=== PATIENT | female | born 1965 | race Caucasian/White ===

== ENCOUNTER 2016-11-14 15:46 | Outpatient (CLI) | END 2016-11-14 15:47 | disposition home or self-care (01) | LOC: LAB 15:46 | PROVIDERS: ATTEND Nurse Practitioner Family | DX: E03.9 Hypothyroidism, unspecified (principal) | CPT/HCPCS: 36415; 84439; 84443 ==

== ENCOUNTER 2016-11-30 00:52 | Emergency (ER) ==
[2016-11-30 01:02] VITALS: BP 149/88; TEMP 97.2
[2016-11-30] MEDS ORDERED: GI COCKTAIL PO STA (01:07)
[2016-11-30] MEDS ORDERED: SODIUM CHLORIDE 1,000 ML IV STA (01:10)
[2016-11-30] MEDS ORDERED: ZOFRAN 4 MG/2 ML IVP STA (01:10)
[2016-11-30] MEDS ORDERED: ZANTAC IVP STA (01:11)
[2016-11-30] MEDS ORDERED: PROTONIX IV IVP STA (01:11)
[2016-11-30] MEDS ORDERED: MORPHINE 2 MG/ML SYRINGE IVP STA (01:12)
[2016-11-30] MEDS ORDERED: PEPCID IVP STA (01:25)
[2016-11-30 01:35] LABS: BASOPHILS # (AUTO) 0.1 K/uL (0-0.2); BASOPHILS % (AUTO) 0.5 % (0.0-3.0); EOSINOPHILS # (AUTO) 0.1 K/ul (0.0-0.7); EOSINOPHILS % (AUTO) 0.9 % (0.0-7.0); HEMATOCRIT 38.6 % (37.0-47.0); HEMOGLOBIN 12.7 g/dl (12.0-16.0); IMMATURE GRANULOCYTE % (AUTO) 0.8 % (0.0-5.0); LYMPHOCYTES # (AUTO) 1.9 K/uL (0.60-3.4); LYMPHOCYTES % (AUTO) 19.4 (10.0-50.0); MEAN CORPUSCULAR HEMOGLOBIN 27.7 pg (27.0-31.0); MEAN CORPUSCULAR HGB CONC 32.9 (31.8-35.4); MEAN CORPUSCULAR VOLUME 84.1 fl (81.0-99.0); MONOCYTES # (AUTO) 0.5 K/uL (0.4-2.0); MONOCYTES % (AUTO) 5.1 (0-10); NEUTROPHILS # (AUTO) 7.2 K/ul (2.0-6.9); NEUTROPHILS % (AUTO) 73.3; PLATELET COUNT 297 10^3/uL (140-440); RED BLOOD COUNT 4.59 10^6/ul (4.20-5.40); WHITE BLOOD COUNT 9.87 K/ul (4.6-10.2)
[2016-11-30 01:52] LABS: ALANINE AMINOTRANSFERASE 16 U/L (12-78); ALBUMIN/GLOBULIN RATIO 1.05; ALKALINE PHOSPHATASE 61 U/L (42-98); AMYLASE 78 U/L (25-115); ANION GAP 16.5; ASPARTATE AMINO TRANSFERASE 19 U/L (15-37); BILIRUBIN,TOTAL 0.39 mg/dL (0.00-1.20); BLOOD UREA NITROGEN 12 mg/dL (7-18); BUN/CREATININE RATIO 15.78; CALCIUM 9.9 mg/dL (8.2-10.2); CARBON DIOXIDE 24 mmol/L (21-32); CHLORIDE 105 mmol/L (98-107); CREATINE KINASE 76 U/L; CREATININE 0.76 mg/dL (0.60-1.30); GLUCOSE 116 mg/dL (70-110); LIPASE 36 U/L (8-78); POTASSIUM 5.5 mmol/L (3.5-5.10); SODIUM 140 mmol/L (136-145); TOTAL PROTEIN 7.8 g/dL (6.4-8.2)
--- NOTE | 2016-11-30 02:01 | CT ---
EXAM: CT of the chest without contrast. HISTORY: Epigastric pain. History of cardiac surgery. PROCEDURE: Contiguous axial CT images of the chest without contrast with coronal and sagittal refor mats. FINDINGS: The heart is within normal limits in size. The thoracic aorta is within normal limits in diameter. There is a coronary stent. There is a calcified granuloma in the left lower lobe. There is a 0.3 cm nodule in the left lower lobe. No infiltrate or consolidation. There are multiple viktoriya rnotomy wires. Impression: 0.3 cm nodule in the left lower lobe. Recommend follow-up CT in 3 months to assess sta bility.
--- NOTE | 2016-11-30 02:04 | CT ---
EXAM: CT of the abdomen and pelvis without contrast. HISTORY: Epigastric pain. PROCEDURE: Contiguous axial CT images of the abdomen and pelvis without contrast with coronal and s agittal reformats. FINDINGS: The liver is normal in appearance. The gallbladder is within normal limits in size. The re are partially calcified gallstones in the gallbladder. The gallbladder wall is not well visualiz ed by CT. The pancreas, spleen, adrenal glands and kidneys are normal in appearance. The abdominal aorta is within normal limits in diameter. The visualized loops of bowel and appendix are normal i n appearance. No free fluid or free air in the abdomen or pelvis. The bladder is minimally filled with no abnormality identified. The uterus is unremarkable. There are degenerative changes in the spine. Impression: Cholelithiasis as described.
[2016-11-30] MEDS ORDERED: DILAUDID 1 MG/ML SYRINGE ONE (02:13)
[2016-11-30] MEDS ORDERED: DILAUDID 1 MG/ML SYRINGE IVP STA ×2 (02:20→04:32)
[2016-11-30 02:30] LABS: ADD URINE MICROSCOPIC YES; BILIRUBIN,URINE Negative (NEGATIVE); KETONES,URINE Negative (NEGATIVE); LEUKOCYTE ESTERASE ,URINE Trace (NEGATIVE); NITRITE,URINE Negative (NEGATIVE); PH,URINE 5.5 (5-9); PROTEIN,URINE Negative (NEGATIVE); URINE, BLOOD Trace-intact (NEGATIVE)
[2016-11-30 05:58] LABS: CREATINE KINASE 61 U/L
--- NOTE | 2016-11-30 06:30 | ED.PDOC ---
General ED Provider: Dr. BIRDIE BAY-ER Chief Complaint: Nausea/Vomiting Stated Complaint: val got gerd--this is diff than my heart problem--it rodney and hurts--page had this for years Time Seen by Physician: 00:55 Mode of Arrival: Walk-In Information Source: Patient Exam Limitations: No limitations Nursing and Triage Documentation Reviewed and Agree: Yes GI Complaint Exam - Abdominal Pain Complaint/Exam Onset: Gradual Duration: several hours Symptoms Are: Still present Timing: Constant Initial Severity: Mild Current Severity: Moderate Location of Pain: Epigastric Character: Reports: Aching, Burning Aggravating: Reports: None Alleviating: Reports: Spontaneous resolution Associated Signs and Symptoms: Reports: Nausea, Vomiting. Denies: Diaphoresis, Fever, Cough, Chest pain, Dizziness, Back pain, Constipation, Blood in stool, Dysuria, Urinary frequency, Decreased urine output, Decreased appetite, Vaginal bleeding, Vaginal discharge, Diarrhea, Sore throat Related History: Denies: Similar episode AAA Risk Factors: Reports: None Cardiac Risk Factors: Reports: Hypertension, CAD Ectopic Risk Factors: Reports: None Ovarian Torsion Risk Factors: Reports: None Surgical Obstruction Risk Factors: Reports: None Patient Rh Status: Unknown Abdominal Findings: Present: None Differential Diagnoses: Constipation, Pancreatitis Quality Indicator For Non-Traumatic Chest Pain/Syncope: EKG Performed Review of Systems - Review Of Systems Constitutional: Reports: No symptoms Eyes: Reports: No symptoms Ears, Nose, Mouth, Throat: Reports: No symptoms Respiratory: Reports: No symptoms Cardiac: Reports: No symptoms GI: Reports: Abdominal pain : Reports: No symptoms Musculoskeletal: Reports: No symptoms Skin: Reports: No symptoms Neurological: Reports: No symptoms Endocrine: Reports: No symptoms Hematologic/Lymphatic: Reports: No symptoms All Other Systems: Reviewed and Negative Past Medical History - Past Medical History Endocrine: Reports: Dyslipidemia Cardiovascular: Reports: CAD, Hypertension Respiratory: Reports: None Hematological: Reports: None Gastrointestinal: Reports: None Genitourinary: Reports: None Neuro/Psych: Reports: None Musculoskeletal: Reports: None Cancer: Reports: None Last Menstrual Period: 40 - Surgical History General Surgical History: Reports: CABG - Family History Family History: Reports: Unknown - Social History Smoking Status: Former smoker Hx Substance Use: No Alcohol Screening: None Lives: With family - Immunizations Tetanus Shot up to Date: Yes Physical Exam - Physical Exam Appearance: Well-appearing, No pain distress, Well-nourished Pain Distress: Moderate Eyes: EUSEBIO, EOMI, Conjunctiva clear ENT: Ears normal, Nose normal, Oropharynx normal Neck: Supple Respiratory: Airway patent, Breath sounds clear, Breath sounds equal, Respirations nonlabored Cardiovascular: RRR, Pulses normal, No rub, No murmur GI/: Soft, Nontender, No masses, Bowel sounds normal, No Organomegaly Musculoskeletal: Normal strength, ROM intact, No edema, No calf tenderness Skin: Warm, Dry, Normal color Neurological: Sensation intact, Motor intact, Reflexes intact, Cranial nerves intact, Alert, Oriented Psychiatric: Affect appropriate, Mood appropriate Interpretation - Radiology Interpretation Radiology Interpretation By: Radiologist Radiology Results: Positive Exam Interpreted: CT Scan - EKG Interpretation Time of EKG #1: 01:00 Rate: Normal Rhythm: Sinus Ectopy: None [place]: NL ST Segment: Normal Interpretation: nsr Time of EKG #2: 05:15 Rate: Normal Rhythm: Sinus Ectopy: None [place]: NL ST Segment: Normal EKG Interpretation: nsr Re-Evaluation - Re-Evaluation Time of Re-Evaluation: 06:31 Status: Improved Vital Signs Stable: Yes Pain Level: o Appearance: NAD Lungs: Clear Skin: Warm and Dry Neuro: Alert and Oriented X3 CV: RRR Critical Care Note - Critical Care Note Total Time (mins): 0 Course - Course Hematology/Chemistry: 11/30/16 01:15 11/30/16 01:15 Orders, Labs, Meds: Lab Review 11/30/16 11/30/16 11/30/16 01:15 02:21 05:30 WBC 9.87 RBC 4.59 Hgb 12.7 Hct 38.6 MCV 84.1 MCH 27.7 MCHC 32.9 RDW Coeff of Jeff 12.2 Plt Count 297 Immature Gran % (Auto) 0.8 Neut % (Auto) 73.3 Lymph % (Auto) 19.4 Jack % (Auto) 5.1 Eos % (Auto) 0.9 Baso % (Auto) 0.5 Immature Gran # (Auto) 0.1 Neut # 7.2 H Lymph # 1.9 Jack # 0.5 Eos # 0.1 Baso # 0.1 D-Dimer 0.82 Sodium 140 Potassium 5.5 H Chloride 105 Carbon Dioxide 24 Anion Gap 16.5 BUN 12 Creatinine 0.76 Estimated GFR (MDRD) 80.00 BUN/Creatinine Ratio 15.78 Glucose 116 H Calcium 9.9 Total Bilirubin 0.39 AST 19 ALT 16 Alkaline Phosphatase 61 Total Creatine Kinase 76 61 Troponin I < 0.0100 < 0.0100 Total Protein 7.8 Albumin 4.0 Globulin 3.8 Albumin/Globulin Ratio 1.05 Amylase 78 Lipase 36 Urine Color Yellow Urine Clarity Clear Urine pH 5.5 Ur Specific [place] 1.025 Urine Protein Negative Urine Glucose (UA) Negative Urine Ketones Negative Urine Blood Trace-intact Urine Nitrite Negative Urine Bilirubin Negative Urine Urobilinogen 0.2 Ur Leukocyte Esterase Trace Urine Microscopic RBC 2-5 Urine Microscopic WBC 0-2 Ur Squamous Epith Cells 2-5 Orders Category Date Time Status EKG-(ED ONLY) Stat CARDIO 11/30/16 01:07 Completed EKG-(ED ONLY) Timed CARDIO 11/30/16 05:30 Completed IV [ED IV/MEDIPORT/POWERPORT] .ONCE EMERGENCY 11/30/16 01:10 Active AMYLASE Stat LAB 11/30/16 01:15 Completed CBC W/ AUTO DIFF Stat LAB 11/30/16 01:15 Completed CK [CREATINE KINASE] Timed LAB 11/30/16 05:30 Completed COMPREHENSIVE METABOLIC PANEL Stat LAB 11/30/16 01:15 Completed CREATINE KINASE Stat LAB 11/30/16 01:15 Completed D-DIMER Stat LAB 11/30/16 01:15 Completed LIPASE Stat LAB 11/30/16 01:15 Completed TROPONIN I Stat LAB 11/30/16 01:15 Completed TROPONIN I Timed LAB 11/30/16 05:30 Completed URINALYSIS C & S IF INDICATED Stat LAB 11/30/16 02:21 Completed 0.9 % Sodium Chloride [Saline Flush] MEDS 11/30/16 01:10 Ordered 1 syr IVF PRN PRN Famotidine Inj [Pepcid] MEDS 11/30/16 01:25 Discontinued 40 mg IVP ONCE STA Hydromorphone HCl [Dilaudid 1 mg/ml Syringe] MEDS 11/30/16 04:32 Discontinued 0.5 mg IVP ONCE STA Hydromorphone HCl [Dilaudid 1 mg/ml Syringe] MEDS 11/30/16 02:13 Discontinued 1 mg .ROUTE .STK-MED ONE Hydromorphone HCl [Dilaudid 1 mg/ml Syringe] MEDS 11/30/16 02:20 Discontinued 1 mg IVP ONCE STA Mag-Al Plus//Lidocaine [Gi Cocktail] MEDS 11/30/16 01:07 Discontinued 30 ml PO ONCE STA Morphine Sulfate [Morphine 2 mg/ml Syringe] MEDS 11/30/16 01:12 Discontinued 2 mg IVP ONCE STA Ondansetron HCl/Pf [Zofran 4 mg/2 ml] MEDS 11/30/16 01:10 Discontinued 4 mg IVP ONCE STA Pantoprazole Sodium [Protonix IV] MEDS 11/30/16 01:11 Discontinued 40 mg IVP ONCE STA Sodium Chloride 0.9% [Sodium Chloride] 1,000 ml MEDS 11/30/16 01:10 Active IV 100 mls/hr CT ABDOMEN/PELVIS WO CONTRAST Stat RADS 11/30/16 01:[address] CHEST W/O CONTRAST Stat RADS 11/30/16 01:11 Completed Medications Generic Name Dose Route Start Last Admin Trade Name Freq PRN Reason Stop Dose Admin Sodium Chloride 1,000 mls @ 100 mls/hr 11/30/16 01:10 11/30/16 01:31 Sodium Chloride IV 11/30/16 11:09 100 mls/hr .Q10H STA Administration Sodium Chloride 1 syr 11/30/16 01:10 Saline Flush IVF PRN PRN To flush IV Discontinued Medications Generic Name Dose Route Start Last Admin Trade Name Freq PRN Reason Stop Dose Admin Al Hydroxide/Mg Hydroxide 30 ml 11/30/16 01:07 11/30/16 04:19 Gi Cocktail PO 11/30/16 01:08 30 ml ONCE STA Administration Famotidine 40 mg 11/30/16 01:25 11/30/16 02:20 Pepcid IVP 11/30/16 01:26 40 mg ONCE STA Administration Hydromorphone HCl 1 mg 11/30/16 02:20 11/30/16 02:21 Dilaudid 1 Mg/Ml Syringe IVP 11/30/16 02:21 1 mg ONCE STA Administration Hydromorphone HCl 0.5 mg 11/30/16 04:32 11/30/16 04:43 Dilaudid 1 Mg/Ml Syringe IVP 11/30/16 04:33 0.5 mg ONCE STA Administration Morphine Sulfate 2 mg 11/30/16 01:12 11/30/16 01:30 Morphine 2 Mg/Ml Syringe IVP 11/30/16 01:13 2 mg ONCE STA Administration Ondansetron HCl 4 mg 11/30/16 01:10 11/30/16 01:31 Zofran 4 Mg/2 Ml IVP 11/30/16 01:11 4 mg ONCE STA Administration Pantoprazole Sodium 40 mg 11/30/16 01:11 11/30/16 01:30 Protonix Iv IVP 11/30/16 01:12 40 mg ONCE STA Administration Vital Signs: Temp Pulse Resp BP Pulse Ox 11/30/16 00:53 97.2 F L 66 20 149/88 H 97 Departure - Departure Time of Disposition: 06:32 Disposition: HOME SELF-CARE Discharge Problem: Lung nodule < 6cm on CT Cholelithiasis Qualifiers: Cholelithiasis location: gallbladder Cholecystitis presence: without cholecystitis Biliary obstruction: without biliary obstruction Qualifier Code: ( K80.20) Calculus of gallbladder without cholecystitis without obstruction GERD (gastroesophageal reflux disease) Qualifiers: Esophagitis presence: without esophagitis Qualifier Code: (K21.9) Gastro- esophageal reflux disease without esophagitis Instructions: Gallstones (ED) Condition: Good Pt referred to PMD for follow-up: Yes Additional Instructions: protonix 40mg #30--avoid acidy, spicy foods and caffeine--talk to hyour pcp about surgical referral and repeat ct of chest in 3mos Allergies/Adverse Reactions: Allergies acetaminophen [From [place]] Allergy (Severe, Verified 11/30/16 01:02) Problems breathing aspirin Allergy (Severe, Verified 11/30/16 01:02) Hives diphenhydramine HCl [From Benadryl] Allergy (Severe, Verified 11/30/16 01:02) Problems breathing Patient will notify drugstore and buy medical alert necklace hydrocodone bitartrate [From [place]] Allergy (Severe, Verified 11/30/16 01:02) Problems breathing Home Medications: Ambulatory Orders Calcium Carbonate/Vitamin D3 [Calcium 600 + Vit D 200 Tablet] 1 each PO DAILY Cholecalciferol (Vitamin D3) [Vitamin D3] 5,000 unit PO WEEKLY 06/24/16 Clopidogrel Bisulfate [Plavix] 75 mg PO d 06/24/16 Famotidine 20 mg PO BID 08/22/16 Metoprolol Succinate 12.5 mg PO BID 06/24/16 Pravastatin Sodium 40 mg PO d 06/24/16 Disposition Discussed With: Patient
== END 2016-11-30 06:44 | disposition home or self-care (01) ==
LOC: ED 00:52
DX: K21.9 Gastro-esophageal reflux disease without esophagitis (principal); K80.20 Calculus of gallbladder without cholecystitis without obstruction; R91.1 Solitary pulmonary nodule; I10 Essential (primary) hypertension; I25.810 Atherosclerosis of coronary artery bypass graft(s) without angina pectoris; E78.5 Hyperlipidemia, unspecified; Z79.899 Other long term (current) drug therapy
CPT/HCPCS: 36415; 80053; 81001; 82150; 82550; 83690; 84484; 85025; 85379; 93005; 93010; 96374; 96375; 96376; 99283

== ENCOUNTER 2016-12-01 13:13 | Emergency (ER) ==
[2016-12-01 13:16] VITALS: BP 143/83; TEMP 99.2; BMI 26.6
--- NOTE | 2016-12-01 13:24 | ED.PDOC ---
General ED Provider: Dr. BIRDIE BAY-ER Chief Complaint: Non-specific Complaint Stated Complaint: i was hurting and now i feel better Time Seen by Physician: 13:15 Mode of Arrival: Walk-In Information Source: Patient Exam Limitations: No limitations Primary Care Provider: RAMBO DURAND-[facility] Nursing and Triage Documentation Reviewed and Agree: Yes GI Complaint Exam - Abdominal Pain Complaint/Exam Onset: Gradual Duration: 24hrs Symptoms Are: Resolved Initial Severity: Mild Current Severity: None Character: Reports: Dull Aggravating: Reports: None Associated Signs and Symptoms: Denies: Diaphoresis, Fever, Cough, Chest pain, Dizziness, Back pain, Constipation, Blood in stool, Dysuria, Urinary frequency, Decreased urine output, Decreased appetite, Vaginal bleeding, Vaginal discharge , Nausea, Vomiting, Diarrhea, Sore throat, Decreased activity Cardiac Risk Factors: Reports: CAD Ectopic Risk Factors: Reports: None Ovarian Torsion Risk Factors: Reports: None Surgical Obstruction Risk Factors: Reports: None Patient Rh Status: Unknown Abdominal Findings: Present: None Differential Diagnoses: Other Review of Systems - Review Of Systems Constitutional: Reports: No symptoms Eyes: Reports: No symptoms Ears, Nose, Mouth, Throat: Reports: No symptoms Respiratory: Reports: No symptoms Cardiac: Reports: No symptoms GI: Reports: No symptoms : Reports: No symptoms Musculoskeletal: Reports: No symptoms Skin: Reports: No symptoms Neurological: Reports: No symptoms Endocrine: Reports: No symptoms Hematologic/Lymphatic: Reports: No symptoms All Other Systems: Reviewed and Negative Past Medical History - Past Medical History Endocrine: Reports: Dyslipidemia Cardiovascular: Reports: CAD, Hypertension Respiratory: Reports: None Hematological: Reports: None Gastrointestinal: Reports: None Genitourinary: Reports: None Neuro/Psych: Reports: None Musculoskeletal: Reports: None Cancer: Reports: None Last Menstrual Period: none - Surgical History General Surgical History: Reports: CABG - Family History Family History: Reports: Unknown - Social History Smoking Status: Former smoker Hx Substance Use: No Alcohol Screening: None Lives: With family Physical Exam - Physical Exam Appearance: Well-appearing, No pain distress, Well-nourished Eyes: EUSEBIO, EOMI, Conjunctiva clear ENT: Ears normal Neck: Supple Respiratory: Airway patent, Breath sounds clear, Breath sounds equal, Respirations nonlabored Cardiovascular: RRR, Pulses normal, No rub, No murmur GI/: Soft, Nontender, No masses, Bowel sounds normal, No Organomegaly Musculoskeletal: Normal strength, ROM intact, No edema, No calf tenderness Skin: Warm, Dry, Normal color Neurological: Sensation intact, Motor intact, Reflexes intact, Cranial nerves intact, Alert, Oriented Psychiatric: Affect appropriate, Mood appropriate Critical Care Note - Critical Care Note Total Time (mins): 0 Course - Course Vital Signs: Temp Pulse Resp BP Pulse Ox 12/01/16 13:14 99.2 F 67 18 143/83 H 96 Departure - Departure Time of Disposition: 13:24 Disposition: HOME SELF-CARE Discharge Problem: Cholelithiasis Qualifiers: Cholelithiasis location: gallbladder Cholecystitis presence: without cholecystitis Biliary obstruction: without biliary obstruction Qualifier Code: ( K80.20) Calculus of gallbladder without cholecystitis without obstruction Instructions: Gallstones (ED) Condition: Good Pt referred to PMD for follow-up: Yes Additional Instructions: ok for returning to work from the standpoint of gallstones as she is asymptomatic at this point(denies cp, dyspnea or abd pain at this time) Allergies/Adverse Reactions: Allergies acetaminophen [From [place]] Allergy (Severe, Verified 12/01/16 13:16) Problems breathing aspirin Allergy (Severe, Verified 12/01/16 13:16) Hives diphenhydramine HCl [From Benadryl] Allergy (Severe, Verified 12/01/16 13:16) Problems breathing Patient will notify drugstore and buy medical alert necklace hydrocodone bitartrate [From [place]] Allergy (Severe, Verified 12/01/16 13:16) Problems breathing Home Medications: Ambulatory Orders Calcium Carbonate/Vitamin D3 [Calcium 600 + Vit D 200 Tablet] 1 each PO DAILY Cholecalciferol (Vitamin D3) [Vitamin D3] 5,000 unit PO WEEKLY 06/24/16 Clopidogrel Bisulfate [Plavix] 75 mg PO d 06/24/16 Famotidine 20 mg PO BID 06/24/16 Metoprolol Succinate 12.5 mg PO BID 06/24/16 Pravastatin Sodium 40 mg PO d 06/24/16 Disposition Discussed With: Patient
== END 2016-12-01 13:30 | disposition home or self-care (01) ==
LOC: ED 13:13
DX: K80.20 Calculus of gallbladder without cholecystitis without obstruction (principal)
CPT/HCPCS: 99281

== ENCOUNTER 2016-12-04 15:32 | Outpatient (CLI) ==
[2016-12-04 15:55] VITALS: BMI 24.3
== END 2016-12-04 15:33 ==
LOC: AMBL 15:32
PROVIDERS: ATTEND Emergency Medicine
DX: R10.9 Unspecified abdominal pain (principal); K80.80 Other cholelithiasis without obstruction

== ENCOUNTER 2016-12-04 15:43 | Emergency (ER) ==
[2016-12-04 15:55] VITALS: BP 116/65; TEMP 97.4; BMI 24.3
[2016-12-04] MEDS ORDERED: ULTRAM PO STA ×3 (16:03→16:17)
--- NOTE | 2016-12-04 16:05 | ED.PDOC ---
General ED Provider: Dr. WICHO SKINNER JR Chief Complaint: Abdominal Pain Stated Complaint: seen this er on friday and dx with gallstones--awaiting scheduling with surgeon--today pain worsened and became steady-states was getting out of car and became sweaty with abd pain occuring[ End ]1 HOUR 97.4 58 16 98% 116/65 6/10 symptoms resolved on exam. tolerated ultram without difficulty Time Seen by Physician: 16:01 Mode of Arrival: Stretcher Information Source: Patient, EMT Exam Limitations: No limitations Nursing and Triage Documentation Reviewed and Agree: No Review of Systems - Review Of Systems Constitutional: Reports: No symptoms Eyes: Reports: No symptoms Ears, Nose, Mouth, Throat: Reports: No symptoms Respiratory: Reports: No symptoms Cardiac: Reports: No symptoms GI: Reports: Abdominal pain : Reports: No symptoms Musculoskeletal: Reports: No symptoms Skin: Reports: No symptoms Neurological: Reports: No symptoms Endocrine: Reports: No symptoms Hematologic/Lymphatic: Reports: No symptoms All Other Systems: Other Past Medical History - Past Medical History Endocrine: Reports: Hypothyroid, Dyslipidemia Cardiovascular: Reports: CAD, Hypertension, CHF Respiratory: Reports: None Hematological: Reports: Anemia Gastrointestinal: Reports: GERD Genitourinary: Reports: None Neuro/Psych: Reports: None Musculoskeletal: Reports: None Cancer: Reports: None Last Menstrual Period: menopause Other Pertinent Past Medical History: single cardiac bypass 2010 - Surgical History General Surgical History: Reports: Tonsillectomy, Adenoidectomy, CABG - Family History Family History: Reports: Unknown - Social History Smoking Status: Former smoker Hx Substance Use: No Alcohol Screening: None Physical Exam - Physical Exam Appearance: Well-appearing Neck: Supple Respiratory: Airway patent GI/: Soft, Nontender, No masses, Bowel sounds normal Critical Care Note - Critical Care Note Total Time (mins): 0 Course - Course Orders, Labs, Meds: Orders Category Date Time Status Tramadol HCl [Ultram] MEDS 12/04/16 16:17 Discontinued 100 mg PO ONCE STA Medications Discontinued Medications Generic Name Dose Route Start Last Admin Trade Name Freq PRN Reason Stop Dose Admin Tramadol HCl 100 mg 12/04/16 16:17 12/04/16 16:18 Ultram PO 12/04/16 16:18 100 mg ONCE STA Administration Vital Signs: Temp Pulse Resp BP Pulse Ox 12/04/16 15:43 97.4 F L 58 L 16 116/65 98 Departure - Departure Time of Disposition: 17:10 Disposition: HOME SELF-CARE Discharge Problem: Cholecystitis with cholelithiasis Qualifiers: Cholelithiasis location: gallbladder Cholecystitis acuity: acute Biliary obstruction: without biliary obstruction Qualifier Code: (K80.00) Calculus of gallbladder with acute cholecystitis without obstruction Instructions: Cholecystitis (ED), Biliary Colic (ED), Gallstones (ED) Condition: Good Pt referred to PMD for follow-up: Yes Additional Instructions: call PMD inform need urgent surgical consult for "RECURRENT CHOLECYSTITIS" FOLLOW UP PMD OR SURGEON THIS WEEK FOR MEDICATION REFILL NEEDED FOR ULTRAM MAY USE ULTRAM FOR PAIN OK TO WAIT OUT PAIN IF NO FEVER AND NOT VOMITING IF PAIN MORE THAN 20 MINUTES RECOMMEND RETURN AND EVALUATE IF NOT RESOLVED Prescriptions: Tramadol HCl [Ultram] 50 mg PO Q6H PRN #14 tablet PRN Reason: PAIN Allergies/Adverse Reactions: Allergies aspirin Allergy (Severe, Verified 12/04/16 15:51) Hives diphenhydramine HCl [From Benadryl] Allergy (Severe, Verified 12/04/16 15:51) Problems breathing Patient will notify drugstore and buy medical alert necklace hydrocodone bitartrate [From [place]] Allergy (Severe, Verified 12/04/16 15:51) Problems breathing Home Medications: Ambulatory Orders Calcium Carbonate/Vitamin D3 [Calcium 600 + Vit D 200 Tablet] 1 each PO DAILY Cholecalciferol (Vitamin D3) [Vitamin D3] 5,000 unit PO WEEKLY 06/24/16 Clopidogrel Bisulfate [Plavix] 75 mg PO d 06/24/16 Metoprolol Succinate 12.5 mg PO BID 06/24/16 Pravastatin Sodium 40 mg PO d 06/24/16 Pantoprazole Sodium [Protonix] 40 mg PO DAILY 12/02/16 Tramadol HCl [Ultram] 50 mg PO Q6H PRN #14 tablet 12/04/16
== END 2016-12-04 17:19 | disposition home or self-care (01) ==
LOC: ED 15:43
DX: K80.00 Calculus of gallbladder with acute cholecystitis without obstruction (principal)
CPT/HCPCS: 99282

== ENCOUNTER 2016-12-18 12:24 | Outpatient (CLI) ==
[2016-12-18 12:35] LABS: FLU INTERNAL QC INTERNAL QC VALID; RAPID FLU A NEGATIVE (NEGATIVE); RAPID FLU B NEGATIVE (NEGATIVE)
== END 2016-12-18 12:25 | disposition home or self-care (01) ==
LOC: LAB 12:24
PROVIDERS: ATTEND Nurse Practitioner Family
DX: J02.9 Acute pharyngitis, unspecified (principal); R50.9 Fever, unspecified
CPT/HCPCS: 87651; 87804; 87880

== ENCOUNTER 2017-02-13 16:17 | Outpatient (CLI) ==
[2017-02-13 17:02] LABS: ALANINE AMINOTRANSFERASE 11 U/L (12-78); ALBUMIN 3.6 g/dL (3.4-5.0); ALBUMIN/GLOBULIN RATIO 1.03; ALKALINE PHOSPHATASE 58 U/L (42-98); ANION GAP 10.7; ASPARTATE AMINO TRANSFERASE 15 U/L (15-37); BILIRUBIN,TOTAL 0.32 mg/dL (0.00-1.20); BLOOD UREA NITROGEN 9 mg/dL (7-18); BUN/CREATININE RATIO 12.16; CALCIUM 9.4 mg/dL (8.2-10.2); CARBON DIOXIDE 27 mmol/L (21-32); CHLORIDE 104 mmol/L (98-107); CHOL/HDL RATIO 2.5 (4.5-5.5); CHOLESTEROL 147 mg/dL (0-200); CREATININE 0.74 mg/dL (0.60-1.30); GLUCOSE 92 mg/dL (70-110); HDL CHOLESTEROL 58 mg/dL (35-80); POTASSIUM 3.7 mmol/L (3.5-5.10); SODIUM 138 mmol/L (136-145); TOTAL PROTEIN 7.1 g/dL (6.4-8.2); TRIGLYCERIDES 105 mg/dL (30-150); VLDL CHOLESTEROL 21 mg/dL (2-30)
== END 2017-02-13 16:18 | disposition home or self-care (01) ==
LOC: LAB 16:17
PROVIDERS: ATTEND Nurse Practitioner Family
DX: E78.5 Hyperlipidemia, unspecified (principal); E03.9 Hypothyroidism, unspecified
CPT/HCPCS: 36415; 80053; 80061; 84443

== ENCOUNTER 2017-02-24 07:03 | Outpatient (CLI) ==
--- NOTE | 2017-02-24 08:24 | CT ---
EXAM: CT of the chest with contrast History: Pulmonary nodule follow-up Comparison: Chest CT 11/30/2016 Technique: Multiplanar CT images through the thorax were obtained following administration of IV co ntrast Findings: Heart size is normal. Coronary calcifications or stent. Great vessels are unremarkable. No pathologically enlarged thoracic lymph nodes. No consolidation. No pleural fluid and no pneumothorax. No suspicious lung masses or lung nodules. Within the visualized upper abdomen, status post cholecystectomy. No acute osseous abnormalities. Impression: No acute intrathoracic process. No suspicious lung masses or lung nodules.
[2017-02-24 08:25] LABS: ALBUMIN 3.3 g/dL (3.4-5.0); ALBUMIN/GLOBULIN RATIO 1.18; ANION GAP 11.7; BILIRUBIN,TOTAL 0.42 mg/dL (0.00-1.20); BUN/CREATININE RATIO 13.23; CALCIUM 8.7 mg/dL (8.2-10.2); CREATININE 0.68 mg/dL (0.60-1.30); POTASSIUM 3.7 mmol/L (3.5-5.10); TOTAL PROTEIN 6.1 g/dL (6.4-8.2)
== END 2017-02-24 07:04 | disposition home or self-care (01) ==
LOC: RAD 07:03
PROVIDERS: ATTEND Nurse Practitioner Family
DX: E78.5 Hyperlipidemia, unspecified (principal); E03.9 Hypothyroidism, unspecified; R91.1 Solitary pulmonary nodule
CPT/HCPCS: 36415; 80053; 84439; 84443

== ENCOUNTER 2017-06-03 23:34 | Emergency (ER) ==
[2017-06-03 23:39] VITALS: BP 148/87; TEMP 96.9; BMI 25.0
--- NOTE | 2017-06-03 23:48 | ED.PDOC ---
General ED Provider: Dr. BIRDIE BAY-ER Chief Complaint: Extremity Pain/Injury Stated Complaint: i hurt my elbow last night Time Seen by Physician: 23:45 Mode of Arrival: Walk-In Information Source: Patient Exam Limitations: No limitations [facility] Nursing and Triage Documentation Reviewed and Agree: Yes Musculoskeletal Complaint Exam - Elbow Pain Complaint/Exam Mechanism of Injury: Reports: Trauma Onset/Duration: last night Symptoms Are: Still present Onset of Pain: Reports: Immediate Initial Severity: Mild Current Severity: Mild Location: Reports: Discrete Character: Reports: Dull, Aching Alleviating: Reports: None Aggravating: Reports: Movement, Twisting, Pulling Associated Signs and Symptoms: Reports: Swelling, Bruising. Denies: Redness, Fever, Weakness, Numbness, Tingling Elbow Findings: Present: Swelling, Ecchymosis Tenderness: Present: Lateral Condyle Differential Diagnoses: Contusion, Closed Fracture Review of Systems - Review Of Systems Constitutional: Reports: No symptoms Eyes: Reports: No symptoms Ears, Nose, Mouth, Throat: Reports: No symptoms Respiratory: Reports: No symptoms Cardiac: Reports: No symptoms GI: Reports: No symptoms : Reports: No symptoms Musculoskeletal: Reports: Joint swelling Skin: Reports: No symptoms Neurological: Reports: No symptoms Endocrine: Reports: No symptoms Hematologic/Lymphatic: Reports: No symptoms All Other Systems: Reviewed and Negative Past Medical History - Past Medical History Previously Healthy: Yes Endocrine: Reports: Hypothyroid, Dyslipidemia Cardiovascular: Reports: CAD, Hypertension, CHF Respiratory: Reports: None Hematological: Reports: Anemia Gastrointestinal: Reports: GERD Genitourinary: Reports: None Neuro/Psych: Reports: None Musculoskeletal: Reports: None Cancer: Reports: None Last Menstrual Period: 13 years ago Other Pertinent Past Medical History: single cardiac bypass 2010 - Surgical History General Surgical History: Reports: Tonsillectomy, Adenoidectomy, CABG - Family History Family History: Reports: Unknown - Social History Smoking Status: Former smoker Hx Substance Use: No Alcohol Screening: None Lives: With family - Immunizations Tetanus Shot up to Date: Yes Physical Exam - Physical Exam Appearance: Well-appearing, No pain distress, Well-nourished Pain Distress: Mild Eyes: EUSEBIO ENT: Ears normal, Nose normal, Oropharynx normal Neck: Supple Respiratory: Airway patent, Breath sounds clear, Breath sounds equal, Respirations nonlabored Cardiovascular: RRR, Pulses normal, No rub, No murmur GI/: Soft, Nontender, No masses, Bowel sounds normal, No Organomegaly Musculoskeletal: Limited ROM Skin: Warm, Dry, Normal color Neurological: Sensation intact, Motor intact, Reflexes intact, Cranial nerves intact, Alert, Oriented Psychiatric: Affect appropriate, Mood appropriate Interpretation - Radiology Interpretation Radiology Interpretation By: Radiologist Radiology Results: Positive Exam Interpreted: Other Critical Care Note - Critical Care Note Total Time (mins): 0 Course - Course Orders, Labs, Meds: Orders Category Date Time Status ELBOW, RIGHT MIN 3 VIEWS Stat RADS 06/03/17 23:44 Completed Vital Signs: Temp Pulse Resp BP Pulse Ox 06/03/17 23:35 96.9 F L 60 17 148/87 H 97 Departure - Departure Time of Disposition: 23:47 Disposition: HOME SELF-CARE Discharge Problem: Injury of upper extremity Instructions: Elbow Sprain (ED), Avulsion Fracture (ED) Condition: Good Pt referred to PMD for follow-up: Yes Additional Instructions: ice--ultram 50mg q 6hrs prn pain #10--stay in splint/sling--f/u at ortho walk in clinic tomorrow with copy of xrays Allergies/Adverse Reactions: Allergies aspirin Allergy (Severe, Verified 06/03/17 23:39) Hives diphenhydramine HCl [From Benadryl] Allergy (Severe, Verified 06/03/17 23:39) Problems breathing Patient will notify drugstore and buy medical alert necklace hydrocodone bitartrate [From [place]] Allergy (Severe, Verified 06/03/17 23:39) Problems breathing Home Medications: Ambulatory Orders Calcium Carbonate/Vitamin D3 [Calcium 600 + Vit D 200 Tablet] 1 each PO DAILY Cholecalciferol (Vitamin D3) [Vitamin D3] 5,000 unit PO WEEKLY 06/24/16 Clopidogrel Bisulfate [Plavix] 75 mg PO d 06/24/16 Metoprolol Succinate 12.5 mg PO BID 06/24/16 Pravastatin Sodium 40 mg PO d 06/24/16 Tramadol HCl [Ultram] 50 mg PO Q6H PRN #14 tablet 12/04/16 Disposition Discussed With: Patient
--- NOTE | 2017-06-04 00:05 | DI ---
EXAM: Three views of the right elbow. HISTORY: Trauma. FINDINGS: There is a 0.2 cm calcification along the posterior margin of the olecranon suspicious fo r an avulsion fragment. The joint spaces are maintained. There is minimal posterior soft tissue sw elling. Impression: 0.2 cm calcification along the posterior margin of the olecranon suspicious for an avul marlen fragment. Recommend correlation with physical exam. Minimal posterior soft tissue swelling.
== END 2017-06-04 00:20 | disposition home or self-care (01) ==
LOC: ED 23:34
DX: M25.521 Pain in right elbow (principal); S59.901A Unspecified injury of right elbow, initial encounter
CPT/HCPCS: 99282

== ENCOUNTER 2017-07-30 08:04 | Outpatient (CLI) ==
[2017-07-30 08:29] LABS: BASOPHILS % (AUTO) 0.5 % (0.0-3.0); EOSINOPHILS # (AUTO) 0.2 K/ul (0.0-0.7); EOSINOPHILS % (AUTO) 1.9 % (0.0-7.0); HEMATOCRIT 35.2 % (37.0-47.0); HEMOGLOBIN 11.8 g/dl (12.0-16.0); IMMATURE GRANULOCYTE % (AUTO) 0.4 % (0.0-5.0); LYMPHOCYTES # (AUTO) 2.6 K/uL (0.60-3.4); LYMPHOCYTES % (AUTO) 33.6 (10.0-50.0); MEAN CORPUSCULAR HEMOGLOBIN 28.6 pg (27.0-31.0); MEAN CORPUSCULAR HGB CONC 33.5 (31.8-35.4); MEAN CORPUSCULAR VOLUME 85.2 fl (81.0-99.0); MONOCYTES # (AUTO) 0.4 K/uL (0.4-2.0); MONOCYTES % (AUTO) 5.5 (0-10); NEUTROPHILS # (AUTO) 4.6 K/ul (2.0-6.9); NEUTROPHILS % (AUTO) 58.1; PLATELET COUNT 322 10^3/uL (140-440); RED BLOOD COUNT 4.13 10^6/ul (4.20-5.40); WHITE BLOOD COUNT 7.86 K/ul (4.6-10.2)
[2017-07-30 09:04] LABS: ALBUMIN 3.5 g/dL (3.4-5.0); ALBUMIN/GLOBULIN RATIO 1.06; ANION GAP 10.7; BILIRUBIN,TOTAL 0.46 mg/dL (0.00-1.20); BUN/CREATININE RATIO 12.85; CALCIUM 9.3 mg/dL (8.2-10.2); CHOL/HDL RATIO 2.8 (4.5-5.5); CREATININE 0.7 mg/dL (0.60-1.30); POTASSIUM 3.7 mmol/L (3.5-5.10); TOTAL PROTEIN 6.8 g/dL (6.4-8.2)
== END 2017-07-30 08:05 | disposition home or self-care (01) ==
LOC: LAB 08:04
PROVIDERS: ATTEND Nurse Practitioner Family
DX: E03.9 Hypothyroidism, unspecified (principal); E78.5 Hyperlipidemia, unspecified; I25.10 Atherosclerotic heart disease of native coronary artery without angina pectoris
CPT/HCPCS: 36415; 80053; 80061; 84439; 84443; 85025

== ENCOUNTER 2017-08-04 10:45 | Outpatient (CLI) ==
--- NOTE | 2017-08-06 08:27 | MAMMO ---
EXAM: Bilateral digital screening mammogram (2-D and 3-D). Comparison: Bilateral mammogram 06/27/2016 Findings: MLO and CC views of bilateral breasts demonstrate scattered fibroglandular breast parenchy ma. CAD was reviewed by the radiologist. Tomosynthesis performed. Stable benign lymph node within the right breast. Stable benign bilateral breast calcifications. There are no dominant masses, no s uspicious microcalcifications and no architectural distortions Impression: Benign stable mammogram. Recommend followup routine screening mammography in 1 year. BIRADS 2
== END 2017-08-04 10:46 | disposition home or self-care (01) ==
LOC: RAD 10:45
PROVIDERS: ATTEND Nurse Practitioner Family
DX: Z12.31 Encounter for screening mammogram for malignant neoplasm of breast (principal)
CPT/HCPCS: 77067

== ENCOUNTER 2017-10-09 17:31 | Emergency (ER) ==
[2017-10-09 17:39] VITALS: BP 119/77; TEMP 100.4; BMI 26.0
[2017-10-09] MEDS ORDERED: SODIUM CHLORIDE 1,000 ML IV STA (17:54)
[2017-10-09] MEDS ORDERED: ZOFRAN 4 MG/2 ML IVP STA (17:54)
--- NOTE | 2017-10-09 17:54 | ED.PDOC ---
General ED Provider: Dr. WICHO SKINNER JR Chief Complaint: Nausea/Vomiting Stated Complaint: Woke this AM, 0700 diarrhea Vomiting after Watery stools " too many to count." Vomited x 5. H/A, body aches[ End ]100.4 85 20 95% 119/77 Time Seen by Physician: 17:54 Mode of Arrival: Walk-In Information Source: Patient Exam Limitations: No limitations Primary Care Provider: [facility] Nursing and Triage Documentation Reviewed and Agree: No Review of Systems - Review Of Systems Constitutional: Reports: Malaise Eyes: Reports: No symptoms Ears, Nose, Mouth, Throat: Reports: No symptoms Respiratory: Reports: No symptoms Cardiac: Reports: No symptoms GI: Reports: Abdominal pain, Diarrhea, Nausea, Vomiting : Reports: No symptoms Musculoskeletal: Reports: No symptoms Skin: Reports: No symptoms Neurological: Reports: No symptoms Endocrine: Reports: No symptoms Hematologic/Lymphatic: Reports: No symptoms All Other Systems: Other Past Medical History - Past Medical History Previously Healthy: Yes Endocrine: Reports: Hypothyroid, Dyslipidemia Cardiovascular: Reports: CAD, Hypertension, CHF Respiratory: Reports: None Hematological: Reports: Anemia Gastrointestinal: Reports: GERD Genitourinary: Reports: None Neuro/Psych: Reports: None Musculoskeletal: Reports: None Cancer: Reports: None Last Menstrual Period: unknown: post menopausal Other Pertinent Past Medical History: single cardiac bypass 2010 - Surgical History General Surgical History: Reports: Tonsillectomy, Adenoidectomy, CABG (x1 in 2011) - Family History Family History: Reports: Unknown - Social History Smoking Status: Former smoker Hx Substance Use: No Alcohol Screening: None Physical Exam - Physical Exam Appearance: Ill-appearing Ill-appearing: Mild Pain Distress: Mild Eyes: EUSEBIO, EOMI, Conjunctiva clear ENT: Ears normal, Nose normal, Oropharynx normal Neck: Supple Respiratory: Airway patent Cardiovascular: RRR GI/: Soft, Tender (nonfocal), Bowel sounds hyperactive Musculoskeletal: Normal strength, ROM intact, No edema, No calf tenderness Skin: Warm, Dry, Normal color Neurological: Sensation intact, Motor intact, Reflexes intact, Cranial nerves intact, Alert, Oriented Psychiatric: Affect appropriate, Mood appropriate Critical Care Note - Critical Care Note Total Time (mins): 0 Course - Course Orders, Labs, Meds: Orders Category Date Time Status Ondansetron HCl/Pf [Zofran 4 mg/2 ml] MEDS 12/07/17 17:54 Discontinued 4 mg IVP ONCE STA Sodium Chloride 0.9% [Sodium Chloride] 1,000 ml MEDS 10/09/17 17:54 Discontinued IV BOLUS Medications Discontinued Medications Generic Name Dose Route Start Last Admin Trade Name Maria C PRN Reason Stop Dose Admin Sodium Chloride 1,000 mls @ 1,000 mls/hr 10/09/17 17:54 10/09/17 18:20 Sodium Chloride IV 10/09/17 18:53 1,000 mls/hr BOLUS STA Administration Ondansetron HCl 4 mg 10/09/17 17:54 10/09/17 18:21 Zofran 4 Mg/2 Ml IVP 10/09/17 17:55 4 mg ONCE STA Administration Vital Signs: Temp Pulse Resp BP Pulse Ox 10/09/17 17:31 100.4 F H 85 20 119/77 95 Departure - Departure Time of Disposition: 19:03 Disposition: HOME SELF-CARE Discharge Problem: Nausea, Vomiting Instructions: Gastroenteritis (ED) Condition: Fair Pt referred to PMD for follow-up: Yes Additional Instructions: clear liquids for 12 hours after vomiting may use zofran or phenergan for nausea return if fever over 101.0 or if worsening increase liquids to 10 to 12 eight ounce cups per day for three days recheck PMD one week sooner if not resolved Prescriptions: Ondansetron HCl [Zofran Tab] 4 mg PO QID PRN #12 tablet PRN Reason: Nausea / Vomiting Promethazine HCl [Phenergan Tab] 25 mg PO QID PRN #12 tablet PRN Reason: Nausea / Vomiting Allergies/Adverse Reactions: Allergies aspirin Allergy (Severe, Verified 10/09/17 17:39) Hives diphenhydramine HCl [From Benadryl] Allergy (Severe, Verified 10/09/17 17:39) Problems breathing Patient will notify drugstore and buy medical alert necklace hydrocodone bitartrate [From [place]] Allergy (Severe, Verified 10/09/17 17:39) Problems breathing Home Medications: Ambulatory Orders Calcium Carbonate/Vitamin D3 [Calcium 600 + Vit D 200 Tablet] 1 each PO DAILY Cholecalciferol (Vitamin D3) [Vitamin D3] 5,000 unit PO WEEKLY 06/24/16 Clopidogrel Bisulfate [Plavix] 75 mg PO d 06/24/16 Metoprolol Succinate 12.5 mg PO BID 06/24/16 Pravastatin Sodium 40 mg PO d 06/24/16 Ondansetron HCl [Zofran Tab] 4 mg PO QID PRN #12 tablet 10/09/17 Promethazine HCl [Phenergan Tab] 25 mg PO QID PRN #12 tablet 10/09/17
== END 2017-10-09 19:00 | disposition home or self-care (01) ==
LOC: ED 17:31
DX: K52.9 Noninfective gastroenteritis and colitis, unspecified (principal)
CPT/HCPCS: 96360; 96375; 99283

== ENCOUNTER 2018-01-23 08:01 | Outpatient (CLI) | END 2018-01-23 08:02 | disposition home or self-care (01) | LOC: LAB 08:01 | PROVIDERS: ATTEND Nurse Practitioner Family | DX: E78.5 Hyperlipidemia, unspecified (principal); K21.9 Gastro-esophageal reflux disease without esophagitis; E55.9 Vitamin D deficiency, unspecified; M81.0 Age-related osteoporosis without current pathological fracture; I25.10 Atherosclerotic heart disease of native coronary artery without angina pectoris; E03.9 Hypothyroidism, unspecified; Z79.899 Other long term (current) drug therapy | CPT/HCPCS: 36415; 80053; 80061; 81001; 82306; 84439; 84443; 85025 ==

== ENCOUNTER 2018-02-17 09:59 | Emergency (ER) ==
[2018-02-17 10:09] VITALS: BP 125/82; TEMP 97.6; BMI 25.0
--- NOTE | 2018-02-17 10:44 | ED.PDOC ---
General ED Provider: Dr. BIRDIE CONNER Chief Complaint: Knee Pain/Injury Stated Complaint: Lt Knee Pain. Was walking and felt her knee pop afterwhich she developed pain Time Seen by Physician: 10:50 Mode of Arrival: Walk-In Information Source: Patient Exam Limitations: No limitations [facility] and T[facility] Documentation Reviewed and Agree: Yes Reviewed sepsis parameters & appropriate labs ordered?: Yes System Inflammatory Response Syndrome: Not Applicable Sepsis Protocol: For patient's 13 years and over: Temp is 96.8 and below OR 101 and greater Pulse >90 BPM Resp >20/minute Acutely Altered Mental Status Are patient's symptoms suggestive of a new infection, such as: -Pneumonia -Skin, Soft Tissue -Endocarditis -UTI -Bone, Joint Infection -Implantable Device -Acute Abdominal Infection -Wound Infection -Meningitis -Blood Stream Catheter Infection -Unknown System Inflammatory Response Syndrome: Not Applicable Review of Systems - Review Of Systems Constitutional: Reports: No symptoms Eyes: Reports: No symptoms Ears, Nose, Mouth, Throat: Reports: No symptoms Respiratory: Reports: No symptoms Cardiac: Reports: No symptoms GI: Reports: No symptoms : Reports: No symptoms Musculoskeletal: Reports: Joint pain (lt knee) Skin: Reports: No symptoms Neurological: Reports: No symptoms Endocrine: Reports: No symptoms Hematologic/Lymphatic: Reports: No symptoms All Other Systems: Reviewed and Negative Past Medical History - Past Medical History Previously Healthy: Yes Endocrine: Reports: Hypothyroid, Dyslipidemia Cardiovascular: Reports: CAD, Hypertension, CHF Respiratory: Reports: None Hematological: Reports: Anemia Gastrointestinal: Reports: GERD Genitourinary: Reports: None Neuro/Psych: Reports: None Musculoskeletal: Reports: None Cancer: Reports: None Last Menstrual Period: none since 38 y.o. Other Pertinent Past Medical History: single cardiac bypass 2011 - Surgical History General Surgical History: Reports: Tonsillectomy, Adenoidectomy, CABG (x1 in 2011) - Family History Family History: Reports: Unknown - Social History Smoking Status: Former smoker Hx Substance Use: No Alcohol Screening: None Physical Exam - Physical Exam Appearance: Well-appearing, No pain distress, Well-nourished, Obese Ill-appearing: None Pain Distress: Mild Eyes: EUSEBIO, EOMI, Conjunctiva clear ENT: Ears normal, Nose normal, Oropharynx normal Respiratory: Airway patent, Breath sounds clear, Breath sounds equal, Respirations nonlabored Cardiovascular: RRR, Pulses normal, No rub, No murmur GI/: Soft, Nontender, No masses, Bowel sounds normal, No Organomegaly Musculoskeletal: Normal strength, ROM intact, No edema, No calf tenderness, Limited ROM (Lt knee-pain with full extension and flexion. Neg Ant/posterior Drawer sign; positive [place] ; neg effusion ), Limited strength Skin: Warm, Dry, Normal color Neurological: Sensation intact, Motor intact, Reflexes intact, Cranial nerves intact, Alert, Oriented Psychiatric: Affect appropriate, Mood appropriate Interpretation - Radiology Interpretation Radiology Interpretation By: Radiologist Radiology Results: No acute changes Exam Interpreted: Other (lt knee xray) Critical Care Note - Critical Care Note Total Time (mins): 0 Course - Course Orders, Labs, Meds: Orders Category Date Time Status KNEE, LEFT 4 VIEWS Stat RADS 02/17/18 11:37 Completed Vital Signs: Temp Pulse Resp BP Pulse Ox 02/17/18 10:07 97.6 F 65 20 125/82 96 Departure - Departure Time of Disposition: 12:50 Disposition: HOME SELF-CARE Discharge Problem: Strain of left knee Instructions: Knee Immobilizer (ED), Knee Pain (ED) Condition: Good Pt referred to PMD for follow-up: Yes (3-5 days with PCP or Orthopedic Center ) IPMP verified?: No Additional Instructions: Wear Knee Immobilizer for protection Avoid weight bearing ambulation Crutches Off work today and tomorrow Follow up PCP for additional evaluation and possible scheduling for MRI Allergies/Adverse Reactions: Allergies aspirin Allergy (Severe, Verified 02/17/18 10:10) Hives diphenhydramine HCl [From Benadryl] Allergy (Severe, Verified 02/17/18 10:10) Problems breathing Patient will notify drugstore and buy medical alert necklace hydrocodone bitartrate [From [place]] Allergy (Severe, Verified 02/17/18 10:10) Problems breathing Home Medications: Ambulatory Orders Calcium Carbonate/Vitamin D3 [Calcium 600 + Vit D 200 Tablet] 1 each PO DAILY Clopidogrel Bisulfate [Plavix] 75 mg PO d 06/24/16 Pravastatin Sodium 40 mg PO d 06/24/16 Disposition Discussed With: Patient
--- NOTE | 2018-02-17 12:10 | DI ---
EXAM: Four views of the left knee HISTORY: Left knee pain. COMPARISON: None FINDINGS: The left knee demonstrates no acute abnormality or displaced fracture. The medial lateral compartments are normal. The patella is normal in position and appearance with mild superior osteoph yte formation. There is no lytic or blastic lesion. The soft tissues are unremarkable. IMPRESSION: No acute abnormality or displaced fracture of the left knee.
== END 2018-02-17 13:27 | disposition home or self-care (01) ==
LOC: ED 09:59
DX: S86.812A Strain of other muscle(s) and tendon(s) at lower leg level, left leg, initial encounter (principal); X50.1XXA Overexertion from prolonged static or awkward postures, initial encounter
CPT/HCPCS: 99283

== ENCOUNTER 2018-02-25 11:55 | Outpatient (CLI) ==
--- NOTE | 2018-02-25 14:40 | MRI ---
EXAM: MRI left knee without contrast. HISTORY: Left knee pain. Mainly medial. No left knee surgery reported. TECHNIQUE: Using a local extremity coil on a high field strength magnet multiplanar multisequence ma gnet resonance imaging was performed of the left knee without intravenous or intra-articular gadolini um contrast.. FINDINGS: I have reviewed the patient's four view plain film examination left knee 02/17/2018 showin g suprapatellar effusion. Within the medial compartment there is meniscal flap tear displaced along the inferior recess involvi ng the body. Undersurface tearing extends over the posterior horn body junction and through to invol ve the inner margin of the posterior horn itself. Medial compartment chondrosis. Trace subchondral edema over the medial weightbearing rim of the medial tibial plateau. Within the lateral compartment lateral meniscus is intact without discrete surfacing meniscal tear. The lateral compartment cartilage congruent without focal underlying subchondral edema. Within the patellofemoral compartment the patella seated with intact medial and lateral patellar reti naculum. Mild patellar chondrosis/chondromalacia patella. Trochlear groove cartilage congruent with out underlying subchondral edema. Early productive osteophyte formation. Small/moderate left effusion. No large osteochondral loose bodies. Intact anterior and posterior cr uciate ligament fibers showing normal orientation. The extensor mechanism is intact. Edematous appe aring suprapatellar fat with convex border. Patellar tendinosis. Low grade sprain medial collateral ligament. Lateral collateral ligament complex intact as is the posterolateral corner. Small account support analyst ior joint extension/popliteal cyst. Tendinosis with some partial thickness tearing origin medial hea d gastrocnemius. IMPRESSION: Meniscal flap tear displaced along the inferior recess involving the body medial meniscu s. Undersurface tear extends over the posterior horn body junction and through to involve the inner margin of the posterior horn itself. Medial compartment chondrosis. Mild patellar chondrosis/chondromalacia patella. Small/moderate left knee effusion. Small posterior joint extension/popliteal cyst. Intact cruciate ligaments. Low grade sprain medial collateral ligament. Edematous appearing suprapatellar fat with convex border. This can be seen with quadriceps/suprapate llar fat pad impingement syndrome. Correlate clinically. Patellar tendinosis. Tendinosis with some partial thickness tearing origin medial head gastrocnemius..
== END 2018-02-25 11:56 | disposition home or self-care (01) ==
LOC: RAD 11:55
PROVIDERS: ATTEND Nurse Practitioner Family
DX: M25.562 Pain in left knee (principal)

== ENCOUNTER 2018-04-28 10:31 | Outpatient (CLI) | END 2018-04-28 10:32 | disposition home or self-care (01) | LOC: FCC-LAB 10:31 | PROVIDERS: ATTEND Nurse Practitioner Family | DX: K21.9 Gastro-esophageal reflux disease without esophagitis (principal); I10 Essential (primary) hypertension; E03.9 Hypothyroidism, unspecified; E78.5 Hyperlipidemia, unspecified; E55.9 Vitamin D deficiency, unspecified | CPT/HCPCS: 36415; 80053; 80061; 81001; 82306; 84439; 84443; 85025 ==

== ENCOUNTER 2018-04-29 11:53 | Outpatient (CLI) ==
--- NOTE | 2018-04-29 15:34 | US ---
EXAM: Thyroid ultrasound HISTORY: Nontoxic thyroid nodule. COMPARISON: Ultrasound 07/15/2016 TECHNIQUE: Sonographic evaluation of the thyroid was performed with limited doppler. FINDINGS: Right thyroid measures 3.0 x 1.0 x 1.0 cm. There is heterogeneous echogenicity. There is normal col or Doppler flow. There is a solid 0.5 x 0.7 x 0.4 cm nodule inferiorly. The isthmus measures 0.2 cm in thickness. The left thyroid measures 2.2 x 0.5 x 0.7 cm. This is heterogeneous in echogenic appearance. There is a 0.5 x 0.6 x 0.2 cm complex nodule in the inferior aspect of the left lobe. Color Doppler flow is unremarkable. IMPRESSION: Bilateral thyroid nodules with heterogeneous appearance suggestive of multinodular goiter. These nod ules measure less than 1 cm in diameter. If followup is clinically indicated, ultrasound may be obtai cristal in 1 year.
== END 2018-04-29 11:54 | disposition home or self-care (01) ==
LOC: RAD 11:53
PROVIDERS: ATTEND Nurse Practitioner Family
DX: E04.1 Nontoxic single thyroid nodule (principal)

== ENCOUNTER 2018-07-21 06:42 | Outpatient (CLI) ==
--- NOTE | 2018-07-23 11:37 | ECHOSTRESS ---
Date of Exam: 07/21/18 Ordering Physician: DR. ED SHEIKH Reason for Echo: CAD, ANGINA, SURGICAL CLEARANCE, STRESS TEST--NO ISCHEMIA M-Mode Normal Adult Results LV Dimensions Normal Adult Results AoV Opening excursions >1.6 LVEDD-base- 3.5-5.8 Ao root dimensions 2.0-3.7 LVESD-base- 3.1-4.6 L. Atrium dimensions 1.9-3.8 Post. Wall thickness 0.8-1.1 IV septum (thickness) 0.7-1.2 Post. Wall excursion 0.72-1.3 Septal motion Systolic motion R. Ventricular cavity 1.5-2.0 LVEF 60% Paradoxical septal wall motion 2-D: NORMAL LEFT VENTRICULAR CONTRACTILITY--RESTING AND POST EXERCISE M-MODE: MV: AV: TV: PV: CHAMBER SIZE: WALL MOTION: NORMAL LEFT VENTRICULAR CONTRACTILITY--RESTING AND POST EXERCISE PERICARDIUM: INTERPRETATION: 1. NORMAL LEFT VENTRICULAR CONTRACTILITY--RESTING AND POST EXERCISE MTDD
--- NOTE | 2018-07-23 13:12 | STRESSMOD ---
Date of Test:07/21/18 Ordering Physician: DR. ED SHEIKH Occupation: [employer] Reason for Exam: CAD, ANGINA, SURGICAL CLEARANCE Height: 63" Weight: 158 LBS Current Medications: LEVOTHYROXINE, TRAMADOL, RANITIDINE, IRON, HYDROXYZINE, PLAVIX Resting EKG: SINUS RHYTHM/ NO ACUTE CHANGES Target Heart Rate: 141/166 S-T SEGMENT STAGE MPH/GRADE HEART RATE BPM BLOOD PRESSURE mmhg RHYTHM +/- ELEVATION DEPRESSION SYMPTOMS,COMMENTS At Rest 69 BPM 158/88 MMHG SR X NONE 1 1.7/0% 100 BPM 172/82 MMHG SR X NONE 2 1.7/5% 112 BPM 170/78 MMHG SR X NONE 3 1.7/10% 4 2.5/12% 5 3.4/14% Immediately After 146 BPM 180/82 MMHG SR X FATIGUE Minutes Post Exercise 4:00 78 BPM 164/70 MMHG SR X NO COMMENTS Minutes Post Exercise DURATION OF EXERCISE: 9:12 MAXIMUM HEART RATE REACHED: 146 BPM REASON FOR TERMINATION: FATIGUE 99% OXYGEN SATURATION WITH EXERCISE ON ROOM AIR METS 5.0 INTERPRETATION: 1. NO EVIDENCE OF ISCHEMIA BY ST-T WAVE 2. NO CHEST PAIN OR DISCOMFORT 3. BLOOD PRESSURE RESPONSE: BORDERLINE WITH EXERCISE AND RESTING HYPERTENSION 4. NO ARRHYTHMIAS NORMAL LEFT VENTRICULAR CONTRACTILITY--RESTING AND POST EXERCISE MTDD
== END 2018-07-21 06:43 | disposition home or self-care (01) ==
LOC: CAR 06:42
PROVIDERS: ATTEND Family Medicine
DX: I25.10 Atherosclerotic heart disease of native coronary artery without angina pectoris (principal); Z01.818 Encounter for other preprocedural examination

== ENCOUNTER 2024-07-04 16:27 | Observation (INO) ==
--- NOTE | 2024-07-04 16:58 | ED.PDOC ---
General ED Provider: Dr. ROBIN ZELAYA MD Chief Complaint: Chest Pain Stated Complaint: Patient history of coronary disease, hypertension complains having chest pain, 30 minutes prior to arrival states the the pain as sharp in character substernal pain scale 5/10. Patient denies radiation of pain to her back, neck, jaw or arms. Patient with history of previous myocardial infarction patient had cardiac catheterization with 2 stents insertion 2008 followed by a second cardiac catheterization 2009 unsuccessful stent placement patient underwent a coronary artery bypass graft. Patient states to years ago she underwent a cardiac catheterization was found to have 2 blockages without attempted stent insertion. Patient denies dyspnea, diaphoresis, palpitations, coughing. Time Seen by Provider: 07/04/24 16:50 Mode of Arrival: Walk-In Information Source: Patient Exam Limitations: Clinical condition Primary Care Provider: NATALI PATEL APRN Nursing and Triage Documentation Reviewed and Agree: Yes What is Opioid Naive?: *Opioid Naive implies the patient is not already taking opioids or not chronically receiving opioids on a daily basis. *PRN dosing is not "usually" associated with tolerance. *Patients are at higher risk of over-sedation and aspiration. What is Opioid Tolerant?: *Opioid Tolerance implies less than the expected response to an opioid. *Acquired tolerance is defined by the patient taking 60mg of oral morphine daily (or equianalgesic dose of another opioid) for 1 week or more. *Often associated with chronic pain. *May take more than usual dose to achieve desired pain control. Review of Systems Review Of Systems Constitutional: Reports No symptoms Eyes: Reports No symptoms Ears, Nose, Mouth, Throat: Reports No symptoms Respiratory: Reports No symptoms Cardiac: Reports Chest pain GI: Reports No symptoms : Reports No symptoms Musculoskeletal: Reports No symptoms Skin: Reports No symptoms Endocrine: Reports No symptoms Hematologic/Lymphatic: Reports No symptoms All Other Systems: Reviewed and Negative [facility] Medical History Hypertension I10 - Essential (primary) hypertension (ICD-10) Chest pain R07.9 - Chest pain, unspecified (ICD-10) Myocardial infarction I21.9 - Acute myocardial infarction, unspecified (ICD-10) Hyperlipidemia E78.5 - Hyperlipidemia, unspecified (ICD-10) Severe headache R51 - Headache (ICD-10) Heartburn R12 - Heartburn (ICD-10) Family History Mother Diabetes Hyperthyroidism Hypertension Social History Smoking and tobacco status: Former smoker Tobacco: How many years used: 25 Passive smoking exposure: No Smoking status stop date: 09/03/10 Quit status: quit date established Second hand smoke exposure: No Smoking risk assessment performed: No Alcohol intake: never Counseling given: No Counseling provided: none Substance use type: does not use Counseling given: No Counseling provided: none Carisa/islam: NONE Special carisa needs: No Agree to transfusion: Yes Adopted: No Caregiver/support person: No Foster care: No Household members: spouse and family Housing: house Marital status: M Lives independently: Yes Number of children: 6 Number of grandchildren: 15 Highest education level completed: 10th grade Financial difficulty paying for basics: somewhat hard service: No residential: No Current occupational status: employed Current occupation: housekeeping Current occupational exposures/hazards: No Pets and animals: Yes (dogs) Leisure activites: other History of recent travel: No Sexually active: No Do you think of yourself as: straight/heterosexual Current gender identity: female Seatbelt use: always Helmet use: No Drives intoxicated or rides with intoxicated otr truck driver: No Water heater temperature set < 120 degrees: Yes Working smoke detector in home: Yes Fire extinguisher in home: Yes Carbon monoxide detector in home: Yes Firearms in home: No What type of physical activity do you participate in?: walking Physical activity functional status: independent ambulation How many days of moderate to strenuous exercise, like a brisk walk, did you do in the last 7 days: 6 Surgical History History of cataract removal with insertion of prosthetic lens Z98.49 - Cataract extraction status, unspecified eye (ICD-10) Z96.1 - Presence of intraocular lens (ICD-10) History of tubal ligation Z98.51 - Tubal ligation status (ICD-10) Status post tonsillectomy Z90.89 - Acquired absence of other organs (ICD-10) History of dental surgery Z92.89 - Personal history of other medical treatment (ICD-10) Placement of stent in coronary artery Status post coronary artery bypass graft Z95.1 - Presence of aortocoronary bypass graft (ICD-10) Status post cholecystectomy 2017 Z90.49 - Acquired absence of other specified parts of digestive tract (ICD- 10) Status post tonsillectomy and adenoidectomy Z90.89 - Acquired absence of other organs (ICD-10) Female Reproductive History Menstrual Hx Hysterectomy: No Hx Tubal Ligation: Yes Physical Exam Physical Exam Appearance: Reports Well-appearing Ill-appearing: None Pain Distress: None Eyes: Reports EUSEBIO, EOMI and Conjunctiva clear ENT: Reports Ears normal, Nose normal and Oropharynx normal Neck: Supple Respiratory: Reports Airway patent and Breath sounds clear Cardiovascular: Reports RRR, Pulses normal, No rub and No murmur GI/: Reports Soft, Nontender, No masses and Bowel sounds normal Musculoskeletal: Reports Normal strength, ROM intact and No edema Skin: Reports Warm and Dry Neurological: Reports Sensation intact, Motor intact, Reflexes intact, Cranial nerves intact, Alert and Oriented Psychiatric: Reports Affect appropriate Critical Care Note Critical Care Note Total Critical Care Time (mins): 0 Course Course 07/04/24 16:38 07/04/24 16:38 Orders, Labs, Meds: Lab Review 07/04/24 07/04/24 16:38 18:48 WBC 9.01 RBC 4.11 L Hgb 11.3 L Hct 35.6 L MCV 86.6 MCH 27.5 MCHC 31.7 L RDW Coeff of Jeff 12.5 Plt Count 294 Immature Gran % (Auto) 0.2 Neut % (Auto) 46.7 Lymph % (Auto) 45.2 [place] % (Auto) 5.2 Eos % (Auto) 2.3 Baso % (Auto) 0.4 Neut # (Auto) 4.2 Lymph # (Auto) 4.1 H [place] # (Auto) 0.5 Eos # (Auto) 0.2 Baso # (Auto) 0.0 Immature Gran # (Auto) 0.0 PT 9.2 L INR 0.87 APTT 22.5 L Sodium 139.0 Potassium 3.46 L Chloride 104.6 Carbon Dioxide 25.7 Anion Gap 12.16 BUN 6.1 L Creatinine 0.72 Estimated GFR (MDRD) 83.00 BUN/Creatinine Ratio 8.47 Glucose 102.0 Calcium 9.13 Magnesium 2.03 Total Bilirubin 0.30 AST 29.1 ALT 18.0 Alkaline Phosphatase 62.0 Troponin I < 0.012 < 0.012 Total Protein 7.32 Albumin 4.30 Globulin 3.02 Albumin/Globulin Ratio 1.42 D-Dimer 933.41 H Orders Category Date Time Status EKG-(ED ONLY) Stat CARDIO 07/04/24 17:46 Completed EKG-(ED ONLY) Stat CARDIO 07/04/24 18:35 Completed NPO REMINDER: IMAGING ONCE CARE 07/04/24 18:07 Completed [place] Lock [ED IV/MEDIPORT/POWERPORT] .ONCE EMERGENCY 07/04/24 17:11 Active CBC W/ AUTO DIFF Stat LAB 07/04/24 16:38 Completed CMP [COMPREHENSIVE METABOLIC PANEL] Stat LAB 07/04/24 16:38 Completed D-DIMER Stat LAB 07/04/24 16:38 Completed MAGNESIUM Stat LAB 07/04/24 16:38 Completed PT WITH INR Stat LAB 07/04/24 16:38 Completed PTT [PARTIAL THROMBOPLASTIN TIME] Stat LAB 07/04/24 16:38 Completed TROPONIN I Stat LAB 07/04/24 16:38 Completed TROPONIN I Stat LAB 07/04/24 18:48 Completed 0.9 % Sodium Chloride [Saline Flush] Meds 07/04/24 17:11 Active 1 syr IVF PRN PRN Aspirin [Aspirin Chewable] Meds 07/04/24 16:58 Discontinued 324 mg PO ONCE STA Nitroglycerin [Nitro-Bid] Meds 07/04/24 18:01 Discontinued 1 inch TD ONCE STA Nitroglycerin [Nitrostat] Meds 07/04/24 16:58 Active 0.4 mg SL Q5MIN X 3 DOSES PRN Sodium Chloride 0.9% [Sodium Chloride] 1,000 ml Meds 07/04/24 17:11 Active IV 50 mls/hr CHEST, 1V AP ONLY Stat RADS 07/04/24 16:58 Completed CTA CHEST PE PROTOCOL Stat RADS 07/04/24 18:07 Completed Medications Generic Name Dose Route Start Last Admin Trade Name Freq PRN Reason Stop Dose Admin Sodium Chloride 1,000 mls @ 50 mls/hr 07/04/24 17:11 07/04/24 17:30 Sodium Chloride IV 07/05/24 13:10 50 mls/hr .Q20H ONE Administration Nitroglycerin 0.4 mg 07/04/24 16:58 07/04/24 17:07 Nitroglycerin 0.4 Mg Tab.Subl SL 0.4 mg Q5MIN X 3 DOSES PRN Administration Chest Pain Sodium Chloride 1 syr 07/04/24 17:11 0.9% Sodium Chloride 10 Ml Disp.Syrin IVF PRN PRN To flush IV Discontinued Medications Generic Name Dose Route Start Last Admin Trade Name Freq PRN Reason Stop Dose Admin Aspirin 324 mg 07/04/24 16:58 07/04/24 17:05 Aspirin 81 Mg Tab.Chew PO 07/04/24 16:59 324 mg ONCE STA Administration Nitroglycerin 1 inch 07/04/24 18:01 07/04/24 18:26 Nitroglycerin 1 Gm Oint TD 07/04/24 18:02 1 inch ONCE STA Administration Vital Signs: Temp Pulse Resp BP Pulse Ox 07/04/24 16:29 97.6 F 69 20 173/82 H 99 ZHANG Risk Score Age >/= 65: No >/= 3 CAD Risk Factors: Yes Known CAD (Stenosis >/= 50%): Yes ASA Use in Past 7 Days: Yes Severe Angina (>/= 2 episodes in 24 hours): No EKG ST Changes >/= 0.5mm: No Postive Cardiac Marker: No ZHANG Total Score: 3 ZHANG Risk Score: Risk Score Odds of by 30D 0 0.1 (0.1-0.2) 1 0.3 (0.2-0.3) 2 0.4 (0.3-0.5) 3 0.7 (0.6-0.9) 4 1.2 (1.0-1.5) 5 2.2 (1.9-2.6) 6 3.0 (2.5-3.6) 7 4.8 (3.8-6.1) Physician Progress Note: History obtained from the patient with a history of coronary disease, patient has a history of myocardial infarction 2008 at which time underwent a cardiac catheterization with 2 stent insertions 2009 the patient underwent a cardiac catheterization unable to to obtain the stent insertion so the patient went a coronary bypass graft. Patient states 2 years ago she underwent a cardiac catheterization with unsuccessful stent insertion and was found to have 2 coronary blockages. Patient complains of chest pain 30 minutes prior to arrival, pain scale 5/10, patient denies radiation of pain to her neck jaw arms and back. Patient denies associated dyspnea, diaphoresis, palpitations. 1632-EKG interpretation by myself consistent with normal sinus rhythm rate of 64. No ischemic changes there is no ectopy or prolongation of TN or QT interval. Portable chest x-ray interpretation by the radiologist is consistent with no acute cardiopulmonary process. Patient given nitroglycerin 0.4 mg sublingual x 3. Aspirin chewable 324 milligrams orally IV fluids normal saline 1 L at 50 mL/h for prevention of hypotension due to nitroglycerin. 1846-EKG interpretation by myself consistent with first-degree block rate of 57 left atrial enlargement Laboratory data CBC and BMP are within normal limits 0.012-troponin Differential diagnosis: 1) acute chest pain 2) history of coronary disease Discussed hospitalist Aime Ram at 1930 for observation with telemetry Discharge Plan Discharge Patient Disposition: PLACED OBSERVATION Discharge Problem: Acute chest pain, History of coronary artery disease Prescriptions: No Action metoprolol tartrate 25 mg tablet See Rx Instructions .ROUTE .COMPLEX Qty: 90 4RF Dose Instruction: TAKE 1 TABLET BY MOUTH 2 (TWO) TIMES A DAY. Rx Instructions: TAKE 1 TABLET BY MOUTH 2 (TWO) TIMES A DAY. rosuvastatin 20 mg tablet See Rx Instructions .ROUTE .COMPLEX Qty: 90 1RF Dose Instruction: TAKE ONE TABLET DAILY Rx Instructions: TAKE ONE TABLET DAILY losartan 50 mg tablet See Rx Instructions .ROUTE .COMPLEX Qty: 30 2RF Dose Instruction: TAKE ONE TABLET DAILY Rx Instructions: TAKE ONE TABLET DAILY pantoprazole 40 mg tablet,delayed release (DR/EC) See Rx Instructions .ROUTE .COMPLEX Qty: 90 1RF Dose Instruction: TAKE ONE TABLET DAILY Rx Instructions: TAKE ONE TABLET DAILY ferrous sulfate [FeroSul] 325 mg (65 mg iron) tablet See Rx Instructions .ROUTE .COMPLEX Qty: 30 0RF Dose Instruction: TAKE ONE TABLET EVERY OTHER DAY Rx Instructions: TAKE ONE TABLET EVERY OTHER DAY clopidogrel 75 mg tablet See Rx Instructions .ROUTE .COMPLEX Qty: 30 1RF Dose Instruction: TAKE ONE TABLET DAILY Rx Instructions: TAKE ONE TABLET DAILY levothyroxine 112 mcg tablet 112 mcg PO DAILY Qty: 30 1RF ondansetron 4 mg tablet,disintegrating 4 mg PO Q6H PRN (Reason: nausea and vomiting) Qty: 20 0RF aspirin [Adult Aspirin Regimen] 81 mg tablet,delayed release (DR/EC) 81 mg PO DAILY isosorbide mononitrate 30 mg tablet extended release 24 hr 30 mg PO QDAY Did you review [place] WIRE[employer]ESS CONSULTANT for ALL controlled substances?: Not Applicable ED Provider: ROBIN ZELAYA Condition: Stable
[2024-07-04 17:05] LABS: BASOPHILS % (AUTO) 0.4 % (0.0-3.0); EOSINOPHILS # (AUTO) 0.2 K/ul (0.0-0.7); EOSINOPHILS % (AUTO) 2.3 % (0.0-7.0); HEMATOCRIT 35.6 % (37.0-47.0); HEMOGLOBIN 11.3 g/dl (12.0-16.0); IMMATURE GRANULOCYTE % (AUTO) 0.2 % (0.0-5.0); LYMPHOCYTES # (AUTO) 4.1 K/uL (0.60-3.4); LYMPHOCYTES % (AUTO) 45.2 (10.0-50.0); MEAN CORPUSCULAR HEMOGLOBIN 27.5 pg (27.0-31.0); MEAN CORPUSCULAR HGB CONC 31.7 (31.8-35.4); MEAN CORPUSCULAR VOLUME 86.6 fl (81.0-99.0); MONOCYTES # (AUTO) 0.5 K/uL (0.4-2.0); MONOCYTES % (AUTO) 5.2 (0-10); NEUTROPHILS # (AUTO) 4.2 K/ul (2.0-6.9); NEUTROPHILS % (AUTO) 46.7 % (42.2-75.2); PLATELET COUNT 294 10^3/uL (140-440); RDW COEFFICIENT OF VARIATION 12.5 % (11.6-14.8); RED BLOOD COUNT 4.11 10^6/ul (4.20-5.40); WHITE BLOOD COUNT 9.01 K/ul (4.6-10.2)
[2024-07-04] MEDS: ASPIRIN CHEWABLE PO STA (17:05)
[2024-07-04] MEDS: NITROSTAT SL PRN (17:07)
[2024-07-04 17:22] LABS: MAGNESIUM 2.03 mg/dL (1.6-2.3)
[2024-07-04 17:23] LABS: ALBUMIN 4.3 g/dL (3.5-5.0); ASPARTATE AMINO TRANSFERASE 29.1 U/L (14-36); BILIRUBIN,TOTAL 0.3 mg/dL (0.2-1.3); BLOOD UREA NITROGEN 6.1 mg/dL (7-17); CALCIUM 9.13 mg/dL (8.4-10.2); CARBON DIOXIDE 25.7 mmol/L (22-30.0); CHLORIDE 104.6 mmol/L (98-107); CREATININE 0.72 mg/dL (0.60-1.30); POTASSIUM 3.46 mmol/L (3.5-5.1); TOTAL PROTEIN 7.32 g/dL (6.3-8.2)
[2024-07-04 17:26] LABS: PARTIAL THROMBOPLASTIN TIME 22.5 SEC (23.9-40.0); PROTHROMBIN TIME 9.2 SEC (9.3-11.0)
[2024-07-04] MEDS: SODIUM CHLORIDE 1,000 ML IV ONE (17:30)
--- NOTE | 2024-07-04 17:34 | DI ---
EXAMINATION: SINGLE VIEW CHEST. HISTORY: Dyspnea. COMPARISON: CTA chest 10/06/2018. FINDINGS: Lines/Devices: Overlying monitoring leads. Previous median sternotomy bypass. Coronary stent noted . Cardiomediastinal silhouette: Minimal leftward rotation. Cardiac size within normal limits. Lungs: No edema. No infiltrate or consolidation. Granulomatous calcification left midlung. Pleural Effusion: None. Osseous structures: No significant abnormality. IMPRESSION: No acute cardiopulmonary abnormality. Previous median sternotomy and bypass.
[2024-07-04 17:35] LABS: TROPONIN I < 0.012 ng/ml (0.0000-0.120)
[2024-07-04] MEDS: NITRO-BID TD STA (18:26)
--- NOTE | 2024-07-04 19:22 | CT ---
EXAM: CTA THORAX. DATE: 07/04/2024 COMPARISON: None HISTORY: Chest pain and elevated D-dimer TECHNIQUE: A helical scan of the thorax was performed following intravenous contrast. MIP and 3-D re construction was provided. FINDINGS: The thoracic inlet axillary regions are normal. There are subcentimeter mediastinal lymph nodes. The caliber of the thoracic aorta and cardiac chambers are normal. There is no right ventric ular strain. The spleen and upper liver have a uniform enhancement cholecystectomy. Sternotomy. No acute osseous abnormality. No significant pulmonary nodules, pleural fluid or consolidation. The tracheobronchial tree is paten t. IMPRESSION: There is good enhancement of the pulmonary arteries. No intraluminal filling defects are observed out to the segmental pulmonary arterial divisions. No acute intrathoracic findings. No pulmonary thromboembolism. All CT scans are performed using dose optimization techniques as appropriate to the performed exam an d include at least one of the following: Automated exposure control, adjustment of the mA and/or kV according t o size, and the use of iterative reconstruction technique.
[2024-07-04 19:44] LABS: SARS COV-2 RNA RAPID NAAT NEGATIVE (NEGATIVE)
[2024-07-04] MEDS ORDERED: TYLENOL PO PRN (20:57)
[2024-07-04] MEDS ORDERED: ZOFRAN ODT PO PRN (21:07)
[2024-07-04 21:14] VITALS: BMI 28.4
[2024-07-04] MEDS: LOPRESSOR PO SCH (22:08)
[2024-07-05] MEDS: SYNTHROID PO SCH (05:06)
[2024-07-05 05:25] LABS: BASOPHILS % (AUTO) 0.6 % (0.0-3.0); EOSINOPHILS # (AUTO) 0.2 K/ul (0.0-0.7); HEMATOCRIT 36.1 % (37.0-47.0); HEMOGLOBIN 11.4 g/dl (12.0-16.0); IMMATURE GRANULOCYTE % (AUTO) 0.4 % (0.0-5.0); LYMPHOCYTES # (AUTO) 2.6 K/uL (0.60-3.4); LYMPHOCYTES % (AUTO) 36.8 (10.0-50.0); MEAN CORPUSCULAR HEMOGLOBIN 27.9 pg (27.0-31.0); MEAN CORPUSCULAR HGB CONC 31.6 (31.8-35.4); MEAN CORPUSCULAR VOLUME 88.3 fl (81.0-99.0); MONOCYTES # (AUTO) 0.5 K/uL (0.4-2.0); MONOCYTES % (AUTO) 7.7 (0-10); NEUTROPHILS # (AUTO) 3.6 K/ul (2.0-6.9); NEUTROPHILS % (AUTO) 51.5 % (42.2-75.2); PLATELET COUNT 268 10^3/uL (140-440); RDW COEFFICIENT OF VARIATION 12.7 % (11.6-14.8); RED BLOOD COUNT 4.09 10^6/ul (4.20-5.40); WHITE BLOOD COUNT 7.04 K/ul (4.6-10.2)
[2024-07-05 05:40] LABS: ALANINE AMINOTRANSFERASE 17.1 U/L (0-35); ALBUMIN 4.09 g/dL (3.5-5.0); ALKALINE PHOSPHATASE 50.8 U/L (53-141); ASPARTATE AMINO TRANSFERASE 41.5 U/L (14-36); BILIRUBIN,TOTAL 0.46 mg/dL (0.2-1.3); BLOOD UREA NITROGEN 6.2 mg/dL (7-17); CALCIUM 8.71 mg/dL (8.4-10.2); CARBON DIOXIDE 27.9 mmol/L (22-30.0); CHLORIDE 105.4 mmol/L (98-107); CHOLESTEROL 128.4 mg/dL (0-200); CREATININE 0.74 mg/dL (0.60-1.30); GLUCOSE 98.2 mg/dL (74-106); POTASSIUM 3.69 mmol/L (3.5-5.1); SODIUM 139.5 mmol/L (134.5-145); TOTAL PROTEIN 6.78 g/dL (6.3-8.2); TRIGLYCERIDES 86.6 mg/dL (0-150)
[2024-07-05 06:09] LABS: THYROID STIMULATING HORMONE 3.73 uIU/L (0.465-4.68)
[2024-07-05] MEDS: ASPIRIN EC PO SCH (08:27)
[2024-07-05] MEDS: PLAVIX PO SCH (08:28)
[2024-07-05] MEDS: IMDUR PO SCH (08:28)
[2024-07-05] MEDS: PROTONIX PO SCH (08:28)
[2024-07-05] MEDS: COZAAR PO SCH (08:28)
[2024-07-05] MEDS: CRESTOR PO SCH (08:28)
[2024-07-05] MEDS ORDERED: CRESTOR PO SCH (09:00)
[2024-07-05 10:15] VITALS: BP 130/77; PULSE 51; RESP 16; TEMP 98
--- NOTE | 2024-07-05 10:52 | PCM.SS ---
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 She states it was mid/left chest area. Does not radiate. She thought it might be acid reflux but it didn't go away. She had a heart cath in November by Dr. Agustin of [facility]. She also had a stress test in 05/26 at [facility]. She is on asa and plavix. In ER here she was noted to have negative trops, unchanged EKG from baseline, CTA chest negative. Admitted to [facility] for further monitoring. As of this morning patient has not had any more chest pain. Trops remained negative. Repeat EKG this morning still unchanged. Reviewed records. Cath done on 11/17/[address] Agustin in [place] showed: GERRADO-LAD: Patent with 30% touch down stenosis LAD: Known occluded stent in the mid segment LCX: 70% stenosis of mid LCX and 80% stenosis of proximal OM1 RCA: Mild irregularities At the time patient had a aspirin allergy. . She was started on Imdur in November. Plan was to medically manage disease, consider PCI in future with recurrent symptoms, which would require aspirin desensitization. She has since seen an plastic extruding machine operator and is tolerating aspirin daily. She was seen on 05/04 at [facility] for chest pain. She had a stress echo done, showing abnormal stress echo consistent with an intermediate risk study for ND. EF 61-65%. Cards at [facility] felt it was low risk and she could f/u with [facility]. Pt states she saw Dr. Agustin later in May and he continued her on same medications and to f/u in November. We discussed her normal troponins, unchanged EKG, and chest pain free. Recommended due to the holiday to call her cardiology office tomorrow morning to notify of her chest pain episode and see if they could see her sooner than November. Pt agrees to plan of care. [facility] Medical History Hypertension I10 - Essential (primary) hypertension (ICD-10) Chest pain R07.9 - Chest pain, unspecified (ICD-10) Myocardial infarction I21.9 - Acute myocardial infarction, unspecified (ICD-10) Hyperlipidemia E78.5 - Hyperlipidemia, unspecified (ICD-10) Severe headache R51 - Headache (ICD-10) Heartburn R12 - Heartburn (ICD-10) Surgical History History of cataract removal with insertion of prosthetic lens Z98.49 - Cataract extraction status, unspecified eye (ICD-10) Z96.1 - Presence of intraocular lens (ICD-10) History of tubal ligation Z98.51 - Tubal ligation status (ICD-10) Status post tonsillectomy Z90.89 - Acquired absence of other organs (ICD-10) History of dental surgery Z92.89 - Personal history of other medical treatment (ICD-10) Placement of stent in coronary artery Status post coronary artery bypass graft Z95.1 - Presence of aortocoronary bypass graft (ICD-10) Status post cholecystectomy 2017 Z90.49 - Acquired absence of other specified parts of digestive tract (ICD- 10) Status post tonsillectomy and adenoidectomy Z90.89 - Acquired absence of other organs (ICD-10) Family History Mother Diabetes Hyperthyroidism Hypertension Social History Smoking and tobacco status: Former smoker Tobacco: How many years used: 25 Passive smoking exposure: No Smoking status stop date: 09/03/10 Quit status: quit date established Second hand smoke exposure: No Smoking risk assessment performed: No Alcohol intake: never Counseling given: No Counseling provided: none Substance use type: does not use Counseling given: No Counseling provided: none Carisa/hoahaoism: NONE Special carisa needs: No Agree to transfusion: Yes Adopted: No Caregiver/support person: No Foster care: No Household members: spouse and family Housing: house Marital status: M Lives independently: Yes Number of children: 6 Number of grandchildren: 15 Highest education level completed: 10th grade Financial difficulty paying for basics: somewhat hard service: No [facility]: No Current occupational status: employed Current occupation: housekeeping Current occupational exposures/hazards: No Pets and animals: Yes (dogs) Leisure activites: other History of recent travel: No Sexually active: No Do you think of yourself as: straight/heterosexual Current gender identity: female Seatbelt use: always Helmet use: No Drives intoxicated or rides with intoxicated farm truck driver: No Water heater temperature set < 120 degrees: Yes Working smoke detector in home: Yes Fire extinguisher in home: Yes Carbon monoxide detector in home: Yes Firearms in home: No What type of physical activity do you participate in?: walking Physical activity functional status: independent ambulation How many days of moderate to strenuous exercise, like a brisk walk, did you do in the last 7 days: 6 Medications Mecications: Medications at Discharge (Home Meds & RX) ondansetron 4 mg disintegrating tablet 4 mg PO Q6H PRN nausea and vomiting #20 tabs 08/22/23 metoprolol tartrate 25 mg tablet See Rx Instructions .Route .COMPLEX #90 tabs 12/05/23 rosuvastatin 20 mg tablet See Rx Instructions .Route .COMPLEX #90 tabs 12/05/23 isosorbide mononitrate 30 mg tablet,extended release 24 hr 30 mg PO QDAY 01/16/24 ferrous sulfate 325 mg (65 mg iron) tablet (FeroSul) See Rx Instructions .Route .COMPLEX #30 tabs 02/10/24 losartan 50 mg tablet See Rx Instructions .Route .COMPLEX #30 tabs 02/10/24 pantoprazole 40 mg tablet,delayed release See Rx Instructions .Route .COMPLEX #90 tabs 02/10/24 clopidogrel 75 mg tablet See Rx Instructions .Route .COMPLEX #30 ea 05/20/24 levothyroxine 112 mcg tablet 112 mcg PO DAILY #30 tabs 07/01/24 aspirin 81 mg tablet,delayed release (Adult Aspirin Regimen) 81 mg PO DAILY 07/04/24 Allergies Allergies Allergy/AdvReac Type Severity Reaction Status Date / Time diphenhydramine HCl Allergy Severe Problems Verified 07/04/24 16:33 [From Benadryl] breathing hydrocodone bitartrate Allergy Severe Problems Verified 07/04/24 16:33 [From [place]] breathing Vital Signs (Last 4 Hours) Vital Signs Last 4 Hours: Vital Signs: Last 4 Hours 07/05/24 07:00 07/05/24 07:00 07/05/24 08:00 Temperature Temperature Source Pulse Rate Respiratory Rate Blood Pressure Blood Pressure Mean Blood Pressure Location Blood Pressure Position O2 Sat by Pulse Oximetry Oxygen Delivery Method Room Air Room Air Telemetry Type Remote Telemetry Telemetry Monitoring Continues Telemetry Heart Rate 55 L Telemetry SPO2 94 EKG VT Interval 0.24 H EKG QRS Interval 0.08 Telemetry Strip Reading SB with 1st AVB 07/05/24 08:00 07/05/24 08:53 07/05/24 09:57 Temperature Temperature Source Pulse Rate Respiratory Rate 19 Blood Pressure Blood Pressure Mean Blood Pressure Location Blood Pressure Position O2 Sat by Pulse Oximetry Oxygen Delivery Method Room Air Room Air Room Air Telemetry Type Telemetry Monitoring Telemetry Heart Rate Telemetry SPO2 EKG VT Interval EKG QRS Interval Telemetry Strip [place] 07/05/24 10:00 Temperature 98 F Temperature Source Temporal Artery Scan Pulse Rate 51 L Respiratory Rate 16 Blood Pressure 130/77 Blood Pressure Mean 94 Blood Pressure Location Left Arm Blood Pressure Position Supine O2 Sat by Pulse Oximetry 98 Oxygen Delivery Method Room Air Telemetry Type Telemetry Monitoring Telemetry Heart Rate Telemetry SPO2 EKG VT Interval EKG QRS Interval Telemetry Strip Reading Labs This Visit Labs This Visit: Labs This Visit 07/04/24 07/04/24 07/04/24 16:38 18:48 19:32 WBC 9.01 RBC 4.11 L Hgb 11.3 L Hct 35.6 L MCV 86.6 MCH 27.5 MCHC 31.7 L RDW Coeff of Jeff 12.5 Plt Count 294 Immature Gran % (Auto) 0.2 Neut % (Auto) 46.7 Lymph % (Auto) 45.2 [place] % (Auto) 5.2 Eos % (Auto) 2.3 Baso % (Auto) 0.4 Neut # (Auto) 4.2 Lymph # (Auto) 4.1 H [place] # (Auto) 0.5 Eos # (Auto) 0.2 Baso # (Auto) 0.0 Immature Gran # (Auto) 0.0 PT 9.2 L INR 0.87 APTT 22.5 L Sodium 139.0 Potassium 3.46 L Chloride 104.6 Carbon Dioxide 25.7 Anion Gap 12.16 BUN 6.1 L Creatinine 0.72 Estimated GFR (MDRD) 83.00 BUN/Creatinine Ratio 8.47 Glucose 102.0 Hemoglobin A1c Calcium 9.13 Magnesium 2.03 Total Bilirubin 0.30 AST 29.1 ALT 18.0 Alkaline Phosphatase 62.0 Troponin I < 0.012 < 0.012 NT-Pro-B Natriuret Pep Total Protein 7.32 Albumin 4.30 Globulin 3.02 Albumin/Globulin Ratio 1.42 Triglycerides Cholesterol LDL Cholesterol, Calc VLDL Cholesterol HDL Cholesterol Cholesterol/HDL Ratio TSH D-Dimer 933.41 H SARS CoV-2 RNA Rapid HARMEET Negative 07/04/24 07/05/24 20:40 05:15 WBC 7.04 RBC 4.09 L Hgb 11.4 L Hct 36.1 L MCV 88.3 MCH 27.9 MCHC 31.6 L RDW Coeff of Jeff 12.7 Plt Count 268 Immature Gran % (Auto) 0.4 Neut % (Auto) 51.5 Lymph % (Auto) 36.8 [place] % (Auto) 7.7 Eos % (Auto) 3.0 Baso % (Auto) 0.6 Neut # (Auto) 3.6 Lymph # (Auto) 2.6 [place] # (Auto) 0.5 Eos # (Auto) 0.2 Baso # (Auto) 0.0 Immature Gran # (Auto) 0.0 PT INR APTT Sodium 139.5 Potassium 3.69 Chloride 105.4 Carbon Dioxide 27.9 Anion Gap 9.89 BUN 6.2 L Creatinine 0.74 Estimated GFR (MDRD) 80.00 BUN/Creatinine Ratio 8.37 Glucose 98.2 Hemoglobin A1c 5.64 Calcium 8.71 Magnesium Total Bilirubin 0.46 AST 41.5 H ALT 17.1 Alkaline Phosphatase 50.8 L Troponin I < 0.012 < 0.012 NT-Pro-B Natriuret Pep 329 H Total Protein 6.78 Albumin 4.09 Globulin 2.69 Albumin/Globulin Ratio 1.52 Triglycerides 86.6 Cholesterol 128.4 LDL Cholesterol, Calc 43 VLDL Cholesterol 17 HDL Cholesterol 68.0 Cholesterol/HDL Ratio 1.9 L TSH 3.730 D-Dimer SARS CoV-2 RNA Rapid HRAMEET Imaging Imaging: EXAMINATION: SINGLE VIEW CHEST. HISTORY: Dyspnea. COMPARISON: CTA chest 10/06/2018. FINDINGS: Lines/Devices: Overlying monitoring leads. Previous median sternotomy bypass. Coronary stent noted. Cardiomediastinal silhouette: Minimal leftward rotation. Cardiac size within normal limits. Lungs: No edema. No infiltrate or consolidation. Granulomatous calcification left midlung. Pleural Effusion: None. Osseous structures: No significant abnormality. IMPRESSION: No acute cardiopulmonary abnormality. Previous median sternotomy and bypass. EXAM: CTA THORAX. DATE: 07/04/2024 COMPARISON: None HISTORY: Chest pain and elevated D-dimer TECHNIQUE: A helical scan of the thorax was performed following intravenous contrast. MIP and 3-D reconstruction was provided. FINDINGS: The thoracic inlet axillary regions are normal. There are subcentimeter mediastinal lymph nodes. The caliber of the thoracic aorta and cardiac chambers are normal. There is no right ventricular strain. The spleen and upper liver have a uniform enhancement cholecystectomy. Sternotomy. No acute osseous abnormality. No significant pulmonary nodules, pleural fluid or consolidation. The tracheobronchial tree is patent. IMPRESSION: There is good enhancement of the pulmonary arteries. No intraluminal filling defects are observed out to the segmental pulmonary arterial divisions. No acute intrathoracic findings. No pulmonary thromboembolism. Review Review Statement: I have independently reviewed and interpreted the labs/EKGs/imaging that were ordered by the ER provider. I have reviewed all outside records that are available currently in our EMR including imaging/notes/labs from previous vis its. Plan Reccomendations/Plan: 1. Chest pain - Hx of CAD s/p CABG. Takes asa and plavix, continue. Trend trops, EKGs. Nitro prn. 2. Hypertension - Cont home meds 3. Hyperlipidemia - Cont home meds 4. Hypothyroidism - Cont home meds 5. GERD - Cont home meds As of this morning patient has not had any more chest pain. Trops remained negative. Repeat EKG this morning still unchanged. Reviewed records. Cath done on 11/17/[address] Agustin in [place] showed: GERARDO-LAD: Patent with 30% touch down stenosis LAD: Known occluded stent in the mid segment LCX: 70% stenosis of mid LCX and 80% stenosis of proximal OM1 RCA: Mild irregularities At the time patient had a aspirin allergy. She was started on Imdur in November. Plan was to medically manage disease, consider PCI in future with recurrent symptoms, which would require aspirin desensitization. She has since seen an plastic extruding machine operator and is tolerating aspirin daily. She was seen on 7/2 at [facility] for chest pain. She had a stress echo done, showing abnormal stress echo consistent with an intermediate risk study for ND. EF 61-65%. Cards at [facility] felt it was low risk and she could f/u with [facility] [place] [facility]. Pt states she saw Dr. Agustin later in May and he continued her on same medications and to f/u in November. We discussed her normal troponins, unchanged EKG, and she is now chest pain free. Recommended due to the holiday to call her cardiology office tomorrow morning to notify of her chest pain episode and see if they could see her sooner than November. Pt agrees to plan of care. 1. Chest pain, resolved 2. Hypertension 3. Hyperlipidemia 4. Hypothyroidism 5. GERD 6. CAD s/p CABG Additional Planning: Case discussed with ED Physician, Dr. Colón. [facility] minutes spent discussing advance care planning. Admit to: Obs Discussed Plan of Care with Dr. Faheem Diamond Review With Patient Reviewed with Patient and Family: Patient and family have been counseled on condition and care plan and have no immediate questions. I have personally discussed and reviewed the patient's visit/current labs/imaging/decision making with Dr. Faheem Diamond, my supervising attending. Total number of minutes spent with patient [85] min. More than 50% of the time spent with this patient was devoted to counseling and coordination of care. Time of Admission:07/04/24 19:50 Time of Discharge: 07/05/24 1015 Discharge Plan Discharge Discharge Orders: Discharge Patient (ONCE); Ordered 07/05/24 Ordered By: AKHIL THAO Activity Restrictions/Additional Instructions: DISCHARGE TO HOME NO MEDICATION CHANGES F/U WITH DR. AGUSTIN, RECOMMEND CALLING HIS OFFICE TOMORROW TO NOTIFY OF HOSPITALIZATION AND SEE IF FOLLOW UP CAN BE MOVED UP DX: CHEST PAIN DIET: CARDIAC ACTIVITY: TOLERATED WORK NOTE GIVEN Instructions: Chest Pain (GEN) Patient Disposition: HOME SELF-CARE Prescriptions: Continued metoprolol tartrate 25 mg tablet See Rx Instructions .ROUTE .COMPLEX Qty: 90 4RF Dose Instruction: TAKE 1 TABLET BY MOUTH 2 (TWO) TIMES A DAY. Rx Instructions: TAKE 1 TABLET BY MOUTH 2 (TWO) TIMES A DAY. rosuvastatin 20 mg tablet See Rx Instructions .ROUTE .COMPLEX Qty: 90 1RF Dose Instruction: TAKE ONE TABLET DAILY Rx Instructions: TAKE ONE TABLET DAILY losartan 50 mg tablet See Rx Instructions .ROUTE .COMPLEX Qty: 30 2RF Dose Instruction: TAKE ONE TABLET DAILY Rx Instructions: TAKE ONE TABLET DAILY pantoprazole 40 mg tablet,delayed release (DR/EC) See Rx Instructions .ROUTE .COMPLEX Qty: 90 1RF Dose Instruction: TAKE ONE TABLET DAILY Rx Instructions: TAKE ONE TABLET DAILY ferrous sulfate [FeroSul] 325 mg (65 mg iron) tablet See Rx Instructions .ROUTE .COMPLEX Qty: 30 0RF Dose Instruction: TAKE ONE TABLET EVERY OTHER DAY Rx Instructions: TAKE ONE TABLET EVERY OTHER DAY clopidogrel 75 mg tablet See Rx Instructions .ROUTE .COMPLEX Qty: 30 1RF Dose Instruction: TAKE ONE TABLET DAILY Rx Instructions: TAKE ONE TABLET DAILY levothyroxine 112 mcg tablet 112 mcg PO DAILY Qty: 30 1RF ondansetron 4 mg tablet,disintegrating 4 mg PO Q6H PRN (Reason: nausea and vomiting) Qty: 20 0RF aspirin [Adult Aspirin Regimen] 81 mg tablet,delayed release (DR/EC) 81 mg PO DAILY isosorbide mononitrate 30 mg tablet extended release 24 hr 30 mg PO QDAY Did you review [place] TRAINING AND DEVELOPMENT ASSISTANT for ALL controlled substances?: Not Applicable Discussed opioids are addictive and Narcan is available by prescription or from pharmacy.: No Condition: Stable
[2024-07-06] MEDS ORDERED: FERROUS SULFATE PO SCH (09:00)
== END 2024-07-05 10:40 | disposition home or self-care (01) ==
LOC: MEDSURG B 16:27 → ED 16:27 → MEDSURG B 20:49
PROVIDERS: ADMIT Nurse Practitioner Family; ATTEND Hospitalist